=== PATIENT | female | born 1950 | race African-American/Black ===

== ENCOUNTER 2016-08-24 15:15 | Inpatient (IN) | payer MEDICARE, OTHER ==
--- NOTE | ~2016-08-24 | HP ---
Unit #: [id number] #: [id number] Patient: OVIDIO HINTON [id number] [place], [place] [address] [id number] I MR#: [id number] NAME: OVIDIO HINTON ROOM: 50084 Age: 66 Sex: F Admission Date: 08/24/2016 : 1950 Attending Physician: Heidy Gong M.D. Primary Care Physician: Primary Care Physician No HISTORY AND PHYSICAL CHIEF COMPLAINT Shortness of air, chest pain. HISTORY OF PRESENT ILLNESS The patient is a 66-year-old female with past medical history of CHF, COPD, chronic respiratory failure, hypertension, hyperlipidemia, paroxysmal atrial fibrillation, chronic kidney disease, Pickwickian syndrome, coronary artery disease, obstructive sleep apnea, breast cancer, diabetes, who presented to the emergency department for evaluation of the above. The patient states that she has had a one-week history of increasing shortness of breath and nonproductive cough. She has also had increased lower extremity swelling and intermittent chest pain. She describes the chest pain as "tightness," it is in the mid chest. There are no exacerbating or alleviating factors. She sleeps in a hospital bed in an upright position which is apparently not a new problem. She also has paroxysmal nocturnal dyspnea that has been worse over the past week. She also reports a 10-pound weight gain over the past week. She states that she has been taking her medications as prescribed. She is on Bumex 2 mg and takes that 3 to 4 times a day. In the emergency department, initial pulse and blood pressure was 86 and 146/58 respectively. Chest x-ray shows cardiomegaly with vascular congestion. EKG shows sinus rhythm with occasional PVCs at a rate of 93 beats per minute. BNP is 39. She was given 1 mg of Bumex as well as 125 mg of Solu-Medrol in the emergency department. She is being admitted to [facility] for evaluation and further treatment. PAST MEDICAL HISTORY 1. Admission to [facility] 03/05 through 03/10/2016 for congestive heart failure. 2. Congestive heart failure. Per the History and Physical from 03/05/2016, the patient had an echocardiogram in November 2015 that showed an ejection fraction of 55%. 3. Coronary artery disease, status post cardiac stent placement. The patient has seen Dr. Abdullahi in the past. 4. COPD. 5. Chronic respiratory failure on 4 liters of oxygen per trach mask, followed by Dr. Lozano. 6. Hypertension. 7. Hyperlipidemia. 8. Paroxysmal atrial fibrillation, not on chronic anticoagulation. The patient is on amiodarone. Unit #: [id number] #: [id number] Patient: OVIDIO HINTON 9. Chronic kidney disease. The patient has seen Dr. Marx in the past. 10. Pickwickian syndrome. 11. Obstructive sleep apnea. 12. History of breast cancer. 13. Diabetes. PAST SURGICAL HISTORY 1. Tracheostomy. 2. Cardiac stent placement. 3. Lumpectomy. ALLERGIES 1. Meperidine. 2. Latex. HOME MEDICATIONS 1. Potassium 80 mEq h.s. 2. Vitamin D 50,000 units weekly. 3. Guaifenesin 1200 mg b.i.d. p.r.n. 4. Tizanidine 8 mg h.s. 5. Bumex 2 mg t.i.d. to q.i.d. 6. Gabapentin 400 mg t.i.d. 7. [place] 10/325 q.i.d. 8. Amiodarone 100 mg daily. 9. Novolin R 45 units subcu t.i.d. 10. Novolin N 70 units subcu b.i.d. 11. Nexium 20 mg h.s. 12. Norvasc 5 mg daily. 13. Ipratropium q.4 h. p.r.n. SOCIAL HISTORY The patient lives with her daughter. She is a former smoker. There is no alcohol use. She walks with a cane. Her CODE STATUS is a FULL CODE. FAMILY HISTORY Notable for her mother having breast cancer, her father had stomach cancer. REVIEW OF SYSTEMS A complete review of systems is negative except as indicated in the HPI. PHYSICAL EXAMINATION VITAL SIGNS: Temperature 98.2, pulse 86, respirations 18, blood pressure 146/58, oxygen saturation 100% on room air. GENERAL: The patient is an female who is awake and alert in no acute distress. HEENT: Head is atraumatic. Mucous membranes are moist. NECK: Patient has a tracheostomy. LUNGS: Decreased breath sounds bilaterally. Breathing is mildly labored with conversation. HEART: Irregular. ABDOMEN: Obese, soft, nontender. Bowel sounds present in all four quadrants. EXTREMITIES: 2+ edema. NEUROLOGIC: Patient is awake and alert. She follows commands. PSYCHIATRIC: Mood and affect are normal. Patient is cooperative. SKIN OF EXAMINED AREAS: Warm and dry. DIAGNOSTIC STUDIES Unit #: [id number] #: [id number] Patient: OVIDIO HINTON LABORATORY: Complete blood count notable for white blood cell count of 10.6, hemoglobin 11, hematocrit 34.9. Troponin less than 0.05. Comprehensive metabolic panel notable for potassium of 3.4, bicarb 32, glucose 113, BUN 35, creatinine 1.5, alkaline phosphatase 97. BNP 39. IMAGING: Chest x-ray shows cardiomegaly with vascular congestion. CARDIOVASCULAR: EKG shows sinus rhythm with occasional PVCs at a rate of 93 beats per minute. ASSESSMENT The patient is a 66-year-old female with: 1. Congestive heart failure exacerbation. The patient's ejection fraction was 55% per echocardiogram in November 2015. She received 1 mg of Bumex in the emergency department. 2. Chest pain. 3. Chronic obstructive pulmonary disease. The patient sees Dr. Lozano. 4. Chronic respiratory failure on 4 liters of oxygen per trach mask. 5. Hypertension. 6. Hyperlipidemia. 7. Paroxysmal atrial fibrillation maintained on amiodarone, not on chronic anticoagulation. 8. Chronic kidney disease. The patient has seen Dr. Marx in the past. The patient's creatinine was 1.7 on 08/11/2016, it is 1.5 today. 9. Pickwickian syndrome. 10. Coronary artery disease, status post cardiac stent placement. 11. Obstructive sleep apnea. 12. History of breast cancer, status post lumpectomy. 13. Diabetes. The patient's hemoglobin A1c was 7.4 on 07/03/2016. 14. Morbid obesity with a BMI of 48 present on admission. PLAN 1. Admit to intermediate level. 2. 2-gram sodium, 1800 mL fluid restricted, heart-healthy consistent carb diet. 3. Bumex 2 mg IV q.8 h. 4. Strict I's and O's. 5. Daily weights. 6. 2D echo if not done within the past year. 7. Serial cardiac enzymes. 8. Check TSH and magnesium levels. 9. Consult Dr. Abdullahi regarding CHF exacerbation and chest pain. 10. Solu-Medrol 80 mg IV q.12 h. 11. Check ABG. 12. DuoNeb. 13. Replace potassium. 14. Check magnesium level. 15. Low-dose sliding scale insulin with Accu-Cheks. 16. Lovenox for DVT prophylaxis. 17. Check urinalysis. 18. Additional workup and consultants based on above. 19. Regarding CODE STATUS the patient is a FULL CODE. Unit #: [id number] #: [id number] Patient: OVIDIO HINTON Dictated by Cassie Bautista/dannie TD: 08/24/2016 20:07 JOB #: [id number] HISTORY AND PHYSICAL Page 1 of 1 X Heidy Gong MD HISTORY AND PHYSICAL
--- NOTE | ~2016-08-24 | EKG ---
PATIENT: OVIDIO HINTON UNIT #: [id number] Ventricular Rate: 93 BPM Atrial Rate: 93 BPM P-R Interval: 144 ms QRS Duration: 98 ms Q-T Interval: 394 ms QTC Calculation(Bezet): 489 ms P [employer]: 52 degrees Calculated R [employer]: -38 degrees Calculated T [employer]: 43 degrees Diagnosis Line: Sinus rhythm with occasional Premature ventricular Diagnosis Line: complexes Diagnosis Line: Left axis deviation Diagnosis Line: Abnormal ECG Diagnosis Line: When compared with ECG of 10-JUN-2016 16:27, Diagnosis Line: Premature ventricular complexes are now Present Diagnosis Line: Incomplete right bundle branch block is no longer Diagnosis Line: Present Diagnosis Line: Borderline criteria for Lateral infarct are no Diagnosis Line: longer Present Diagnosis Line: Confirmed by TANO TORRES MD ([id number]) on 08/24/2016 Diagnosis Line: 11:06:33 PM INTERPRETING MD: BRIAN HOSKINS
--- NOTE | ~2016-08-24 | CO ---
Unit #: [id number] #: [id number] Patient: OVIDIO HINTON [id number] [facility]. [place], [place] [address] [id number] I MR#: [id number] NAME: OVIDIO HINTON ROOM: 308 Age: 66 Sex: F Admission Date: 08/24/2016 : 1950 Attending Physician: Davi Lai M.D. Primary Care Physician: No Primary Care Physician Consultation Date: 08/25/2016 CONSULTATION REPORT REASON FOR CONSULTATION Acute on chronic diastolic CHF and dyspnea. HISTORY OF PRESENT ILLNESS The patient is a 66-year-old -Lao female who is known to Dr. Abdullahi. She has had multiple hospital admissions to [facility] for dyspnea and CHF. Records indicate in November 2015 her ejection fraction was 55%. The patient reports that she has had a cardiac catheterization at [facility] in 2014 and received three stents; however, the details are unknown. Additional past medical history includes fluid overload, pulmonary edema, paroxysmal atrial fibrillation, pickwickian syndrome with tracheostomy, chronic kidney disease, obstructive sleep apnea, osteoarthritis, breast cancer and reformed tobaccoism. The patient reports that she has been having increasing shortness of breath with exertion for about the past week. She states that she has been taking her Bumex as prescribed. She states that she has been following fluid restriction and trying to follow a low sodium diet. The patient reports that she is compliant with her followup with Dr. Abdullahi. For the past week, the patient reports again the shortness of breath with exertion, nonproductive cough but denies chest pain. She notes that her lower extremities may seem a little bit more swollen than the usual too. The patient is followed by [facility] and the [facility]. In the emergency room, the patient's peak troponin was found to be 0.09. EKG showed sinus rhythm with PVCs and she was treated with IV Bumex. Cardiology has been consulted for further management. PAST MEDICAL HISTORY 1. EF of 55% per records from November 2015 2. Cardiac catheterization 2015 at [facility]. Details unknown. 3. Multiple cardiac admissions for chronic diastolic CHF and atrial fibrillation. 4. Paroxysmal atrial fibrillation. 5. Hypertension. 6. Dyslipidemia. 7. Pickwickian syndrome with tracheostomy. 8. Diabetes type 2. 9. Morbid obesity with BMI greater than 30. 10. Degenerative disc disease. 11. COPD. 12. Coronary artery disease with three stents, details unknown. 13. Osteoarthritis. Unit #: [id number] #: [id number] Patient: OVIDIO HINTON 14. MRSA of the sputum. 15. Breast cancer. 16. Obesity. PAST SURGICAL HISTORY 1. Breast cancer with lumpectomy in 2013. 2. Tracheostomy in 2013. 3. Cardiac catheterization, details unknown. 4. Left upper chest PowerPort. ALLERGIES Latex, meperidine. HOME MEDICATIONS 1. Potassium 80 mEq p.o. at bedtime. 2. Vitamin D 50,000 units p.o. weekly on . 3. Humibid LA 1200 mg p.o. b.i.d. p.r.n. 4. Tizanidine 8 mg p.o. at bedtime. 5. Bumex 2 mg p.o. three to four times daily. 6. Gabapentin 400 mg p.o. three times daily. 7. [place] 10/325 mg, one tab p.o. four times daily. 8. Amiodarone 100 mg p.o. daily. 9. Novolin R 45 units subcu three times daily. 10. Novolin N 70 units subcu b.i.d. 11. Nexium 20 mg p.o. at bedtime. 12. Norvasc 5 mg p.o. daily. 13. Ipratropium albuterol 3 mL inhalation every four hours p.r.n. shortness of breath. FAMILY HISTORY The patient endorses a family history of cancer. She denies any premature atherosclerotic heart disease. SOCIAL HISTORY The patient states that she smoked cigarettes for approximately 40 years but quit in 2016. She denies any alcohol or illicit drug abuse. She states that she is able to walk around the house but is unable to walk one to three blocks. She is unable to lie flat at night and has to sleep with her head up. She has had a tracheostomy since 2013. REVIEW OF SYSTEMS CONSTITUTIONAL: The patient denies fever, chills. Endorses fatigue. HEENT: This patient denies sore throat, ear pain or runny nose. CARDIOVASCULAR: The patient denies chest pain, irregular rhythm or palpitations. CHEST: The patient endorses shortness of breath and cough. Denies hemoptysis. GI: Denies nausea, vomiting, diarrhea, chronic constipation or hematochezia. ENDO: Denies increased thirst or urination. Endorses weight gain. : Denies any dysuria, frequency or hematuria. SKIN: Denies any unusual rashes or lesions. HEMATOLOGIC: Denies any increased bleeding or bruising. MUSCULOSKELETAL: Denies any hot, swollen joints. She denies any generalized muscle pain. NEUROLOGIC: She denies problems with speech or vision. No frequent severe headaches. No numbness, tingling or weakness in any extremity. Denies loss of bowel or bladder control. Unit #: [id number] #: [id number] Patient: OVIDIO HINTON PHYSICAL EXAMINATION GENERAL: The patient is awake, alert, in no acute distress. VITAL SIGNS: Temperature 98.2, heart rate 84, respirations 18, blood pressure 125/64. She is oxygenating 100%. She is on a trach mask. HEENT: Head is atraumatic, normocephalic. Pupils are equal, round and reactive. Extraocular movements are intact. No drainage from ears or nares. NECK: Supple. Tracheostomy is clean, dry and intact. There is a trach mask attached. No thyromegaly or lymphadenopathy is appreciated. CHEST: Lungs are diminished bilaterally with faint crackles in the bases. CARDIOVASCULAR: S1, S2. Regular rate and rhythm. The patient has a 2/6 systolic murmur. ABDOMEN: Soft, nontender, nondistended. Bowel sounds are positive in all four quadrants. SKIN: Appears to be warm, dry and intact without any unusual rashes or lesions. EXTREMITIES: No clubbing or cyanosis. The patient has 1 to 2+ bilateral lower extremity edema. NEUROLOGIC: The patient is alert and oriented x3. She is pleasant and conversant. No focal defects. DIAGNOSTIC STUDIES LABORATORY: Troponin 0.09, 0.07. White blood cells 9.9, hemoglobin 11.1, hematocrit 35.2, platelets 182, sodium 139, potassium 4.3, chloride 97, CO2 30, BUN 36, creatinine 2.1, glucose 242. IMAGING: Chest x-ray shows cardiomegaly and vascular congestion. CARDIOVASCULAR: EKG shows sinus rhythm with PVCs. ASSESSMENT 1. Acute on chronic diastolic congestive heart failure and left ventricular ejection fraction of 55% per echo in November 2015. 2. Acute on chronic hypoxic respiratory failure requiring 4 L nasal cannula and tracheostomy secondary to pickwickian syndrome. 3. Coronary artery disease with history of stents, details unknown. 4. Hypertension. 5. Hyperlipidemia. 6. Diabetes. 7. Acute on chronic kidney disease. 8. Paroxysmal atrial fibrillation with a CHADS-VASc score of 6-7. She is currently in sinus rhythm. 9. Morbid obesity with body mass index greater than 30. 10. History of breast cancer, status post lumpectomy. 11. Reformed tobaccoism. 12. Mild elevated troponin. I have discussed this case with Dr. Peña. He is agreeable to continue IV Bumex 2 mg every eight hours. Will continue patient's Norvasc and Cordarone. Will add strict I's and O's, check a TSH, add 2 g sodium diet. Will monitor patient's troponin. Will ask the nurses to do daily weights on the patient. Unit #: [id number] #: [id number] Patient: OVIDIO HINTON Dictated by... Vania Lai A.P.R.N. for Paul Peña M.D. AM/brianne TD: 08/25/2016 10:39 JOB #: [id number] CONSULTATION REPORT Page 1 of 1 X Vania Lai ESTIMATOR PROJECT MANAGER X CONSULTATION REPORT
--- NOTE | ~2016-08-24 | BMI ---
[facility] Nutrition Therapy DATE: 08/25/16 Patient: OVIDIO HINTON Physician: SAVANNAH Address: [address] [place] [address] Room/Bed: [address] [place] [address], Zip: [place] [address] Admit Date: 08/24/16 Date of : [birth year] Height: 5 10 Weight: 336 152.8 HIGH BMI NOTE: ANTHROPOMETRICS: HT: 70" WT: 152.8 KG BMI: 48.2 INTERVENTION: 1. 2 GM NA+/ HH/CC DIET RECOMMENDATIONS: 1. CONTINUE CURRENT DIET TO PROMOTE GRADUAL WEIGHT LOSS TOWARDS A HEALTHY BMI RANGE. Respectfully, LUCILLE DEL CID RD, LD [facility] cc: client file
--- NOTE | ~2016-08-24 | CR63 ---
[facility] A Service of [facility] & [facility] RADIOLOGY TEXT RESULTS PATIENT: OVIDIO HINTON LOCATION: [facility] 308- : [birth year] UNIT #: [id number] AGE: [address]: Davi Lai MD SEX: F ORDER DR: [id number] [facility] [address] [facility]. [place], [place] [address] [id number] I MR#: [id number] Acc #: [id number] NAME: OVIDIO HINTON : 1950 SEX: F STUDY DATE/TIME: 08/26/2016 21:12 UNIT: C3A U ROOM: [facility] STUDY DESCRIPTION: CR Chest 2 View Attending Physician: Davi Lai M.D. Ordering Physician: Davi Lai M.D. Primary Care Physician: Primary Care Physician No MEDICAL IMAGING REPORT This report is preliminary unless electronic signature is present EXAM AP and lateral chest, 08/26/2016 HISTORY Cough and congestion and shortness of air for 2 weeks. FINDINGS 2 views of the chest demonstrate mild cardiac enlargement. Borderline vascular congestion. No airspace infiltrates or effusions are identified. Exam sensitivity is limited on the lateral view due to motion and under penetration. Tracheostomy tube tip is 5 cm above the omar. Left subclavian port catheter tip is in the right atrium 2 cm beyond the junction of the SVC and right atrium. IMPRESSION 1. Mild cardiac enlargement and borderline to mild vascular congestion. 2. No infiltrates are identified. Dictated by... Dave Dennis M.D. THIS IS AN ELECTRONICALLY VERIFIED REPORT Dave Dennis M.D. at 08/26/2016 11:29 PM AKIRA/gunjan TD: 08/26/2016 23:14 JOB #: [id number] MEDICAL IMAGING REPORT Page 1 of 1 COPY
--- NOTE | ~2016-08-24 | NM69 ---
[facility] A Service of [facility] & [facility] RADIOLOGY TEXT RESULTS PATIENT: OVIDIO HINTON LOCATION: [facility] 308- : [birth year] UNIT #: [id number] AGE: [address]: Davi Lai MD SEX: F ORDER DR: [id number] [facility] [address] [facility]. [place], [place] [address] [id number] I MR#: [id number] Acc #: [id number] NAME: OVIDIO HINTON : 1950 SEX: F STUDY DATE/TIME: 08/26/2016 20:29 UNIT: A [facility] ROOM: [facility] STUDY DESCRIPTION: NM Pulm Vent and Perf Attending Physician: Davi Lai M.D. Ordering Physician: Davi Lai M.D. Primary Care Physician: No Primary Care Physician MEDICAL IMAGING REPORT This report is preliminary unless electronic signature is present EXAM V/Q lung scan. DATE OF EXAM 08/26/2016 HISTORY Shortness of air and chest congestion for 3 days. FINDINGS Ventilation scan was performed with 35 mCi technetium DTPA. Perfusion scan was performed with 6 mCi technetium MAA. Ventilation images are limited by patient body habitus and tracer concentration along the tracheostomy tube. On the perfusion scans, no focal perfusion defects are identified. IMPRESSION Low probability of pulmonary embolus. Dictated by... Dave Dennis M.D. THIS IS AN ELECTRONICALLY VERIFIED REPORT Dave Dennis M.D. at 08/26/2016 11:29 PM AKIRA/angeles TD: 08/26/2016 22:56 JOB #: [id number] MEDICAL IMAGING REPORT Page 1 of 1 COPY
--- NOTE | ~2016-08-24 | CR71 ---
[facility] A Service of [facility] & [facility] RADIOLOGY TEXT RESULTS PATIENT: OVIDIO HINTON LOCATION: [facility] 308- : [birth year] UNIT #: [id number] AGE: [address]: Davi Lai MD SEX: F ORDER DR: [id number] [facility] [address] [facility] [place], [place] [address] [id number] I MR#: [id number] Acc #: [id number] NAME: OVIDIO HINTON : 1950 SEX: F STUDY DATE/TIME: 08/27/2016 8:16 UNIT: [address] ROOM: [facility] STUDY DESCRIPTION: CR Chest Single View Attending Physician: Davi Lai M.D. Ordering Physician: Davi Lai M.D. Primary Care Physician: Primary Care Physician No MEDICAL IMAGING REPORT This report is preliminary unless electronic signature is present EXAM Portable chest INDICATIONS Congestive heart failure. The study is performed in conjunction with ventilation-perfusion scan. Comparison with yesterday. FINDINGS Slightly decreased inspiratory volume. No new infiltrates. Heart size stable. Stable tracheostomy tube and chest port. IMPRESSION Slightly decreased inspiratory volume otherwise no significant change. Dictated by... Demar Leigh M.D. THIS IS AN ELECTRONICALLY VERIFIED REPORT Demar Leigh M.D. at 08/27/2016 4:33 PM ДМИТРИЙ/lina TD: 08/27/2016 10:39 JOB #: [id number] MEDICAL IMAGING REPORT Page 1 of 1 COPY
--- NOTE | ~2016-08-24 | DS ---
Unit #: [id number] #: [id number] Patient: OVIDIO HINTON [id number] [place], [place] [address] [id number] I MR#: [id number] NAME: OVIDIO HINTON ROOM: 308 Age: 66 Sex: F Admission Date: 08/24/2016 : 1950 Discharge Date: 08/29/2016 Attending Physician: Davi Lai M.D. Primary Care Physician: Primary Care Physician No DISCHARGE SUMMARY DISCHARGE DIAGNOSES 1. Acute on chronic respiratory failure. 2. Acute on chronic diastolic heart failure. 3. Pickwickian syndrome. 4. Hypertension. 5. Chronic kidney disease, stage 3. 6. Diabetes. 7. Obstructive sleep apnea. HOSPITAL COURSE The patient is a 66-year-old female, who presents to [facility] Emergency Department with complaint of shortness of breath. The patient was felt to have an exacerbation of her chronic diastolic heart failure and was started on IV Bumex. The patient has done well on said therapy and has diuresed approximately 13 L over the past 72 hours. As a result, she is up and ambulating without difficulty. At this time, the Bumex drip has been stopped and the patient is being discharged home. Follow up with primary care provider. DISCHARGE MEDICATIONS DuoNebs as needed shortness of breath, amiodarone 100 mg daily, Neurontin 400 mg p.o. t.i.d., Norvasc 5 mg daily, Bumex 2 mg p.o. t.i.d. and 2 mg p.o. q.i.d. for 2 pounds weight gain in 24 hours or 5 pounds over 72 hours. Humibid 1200 mg p.o. b.i.d. as needed, Novolin R 45 units subcu t.i.d., Novolin N 70 units subcu b.i.d., [place] 10/325 one p.o. q.i.d., Nexium 20 mg at bedtime, Klor-Con 8 mEq p.o. at bedtime and in the morning. Tizanidine 8 mg p.o. q.h.s., vitamin D 50,000 units weekly. FOLLOWUP The patient should follow up with her primary care provider, [facility], as soon as possible. Additionally, the patient should follow up with Dr. Gordon in 1 month. Dictated by... Davi Lai M.D. JOHNNIE/leti Unit #: [id number] #: [id number] Patient: OVIDIO HINTON TD: 08/30/2016 00:53 JOB #: [id number] DISCHARGE SUMMARY Page 1 of 1 X Davi Lai MD X DISCHARGE SUMMARY
--- NOTE | ~2016-08-24 | CR72 ---
[facility] A Service of [facility] & [facility] RADIOLOGY TEXT RESULTS PATIENT: OVIDIO HINTON LOCATION: [facility] 308-01 : [birth year] UNIT #: [id number] AGE: [address]: Heidy Gong MD SEX: F ORDER DR: [id number] [facility] [address] [facility]. [place], [place] [address] [id number] I MR#: [id number] Acc #: [id number] NAME: OVIDIO HINTON : 1950 SEX: F STUDY DATE/TIME: 08/24/2016 15:21 UNIT: CEDOF ROOM: 60897 STUDY DESCRIPTION: CR Chest Single View Portable Attending Physician: Heidy Gong M.D. Ordering Physician: Romero Ugarte M.D. Primary Care Physician: Primary Care Physician No MEDICAL IMAGING REPORT This report is preliminary unless electronic signature is present EXAM Portable chest, 08/24/2016 HISTORY Chest pain and shortness of air. Cough and congestion for 1 week. FINDINGS Moderate cardiac enlargement and vascular congestion, with increased vascular congestion compared to 06/10/2016. No airspace infiltrates or effusions. Left subclavian port catheter tip is in the right atrium 2 cm beyond the junction SVC and right atrium. Tracheostomy tube tip is in satisfactory position. Surgical clips in the right axilla. IMPRESSION 1. No pulmonary infiltrates. 2. Moderate cardiac enlargement and vascular congestion. Dictated by... Dave Dennis M.D. THIS IS AN ELECTRONICALLY VERIFIED REPORT Dave Dennis M.D. at 08/24/2016 11:39 PM DFSid/gunjan TD: 08/24/2016 21:59 JOB #: [id number] MEDICAL IMAGING REPORT Page 1 of 1 COPY
--- NOTE | ~2016-08-24 | A ---
[facility] Nutrition Therapy DATE: 08/27/16 Patient: OVIDIO HINTON Physician: SAVANNAH Address: [address] [place] [address] Room/Bed: [address] [place] [address], Zip: [place] [address] Admit Date: 08/24/16 Date of : [birth year] Height: 5 10 Weight: 335 152.4 NUTRITIONAL ASSESSMENT: REASON: Verbal MD consult RE: CHF diet education 66 yo female admitted for shortness of air, chest pain PMH: CHF, COPD, HTN, HLD, CAD, DM, CKD, DILIP, chronic respiratory failure, Pickwickian syndrome, h/o breast cancer Anthropometrics: Ht: 5'10" Wt: 152.3 kg (335#) BMI: 48.2 Assessment: RD manufacturing intern provided written and verbal CHF diet education. Encouraged limiting sodium intake d/t CHF. Pt reported eating food daughter prepares, RD manufacturing intern encouraged looking over provided handouts with family. RD manufacturing intern encouraged consistent healthy meals throughout the day 2' PMH of diabetes. Pt stated diet changes were hard, expect mild compliance with diet when d/c'd. Pt had no diet questions at this time. Recommendations: 1. Encourage compliance with 2 gm sodium diet + fluid restriction. 2. Reconsult RD if further diet education is needed/requested. RD will f/u per protocol. Respectfully, Jennifer De Souza, R D Manager Nuno Renteria MS, RD, LD Food and Nutritional Services [facility] cc: client file
[~2016-08-24 15:15] MED LIST: ACETAMINOPHEN325 MG PO; ALDACTONE25 MG PO; AMIODARONE HCL400 MG PO; BUMETANIDE0.25 MG/ML INJ; BUMEX2 MG PO; CLOPIDOGREL75 MG PO; DOCUSATE SODIU100 MG PO; GABAPENTIN400 M2 PO; HUMALOG100 U/M2 SUBQ; HUMALOG100 U/ML SUBQ; HUMIBID-LA600 MG PO; HYDRALAZINE HCL50 MG PO; IPRATROPIUM0.2 MG/ML NEB; KLOR-CON 88 ME1 PO; LANTUS100 UNITS/ SUBQ; LIPITOR80 MG PO; NEXIUM 24HR20 MG PO; NORCO 10-325 TA1 TAB PO; NORVASC10 MG PO; OXYCODON HCL-AP1 TA2 PO; POTASSIUM CHLOR8 ME1 PO; TIZANIDINE HCL4 M1 PO; Vitamin D PO
[2016-08-24 16:23] LABS: BASOPHIL# 0.1 X10e3 (0-0.3); BASOPHIL% 0.7 % (0-2.5); EOSINOPHIL# 0.3 X10e3 (0-0.7); EOSINOPHIL% 2.7 % (0.0-7.0); HEMATOCRIT 34.9 % (35.0-45.0); LYMPHOCYTE# 1.5 X10e3 (1.0-3.5); MEAN CELL VOLUME 84.1 FL (83-96); MEAN CORPUSCULAR HEMOGLOBIN 26.6 PG (28-34); MEAN CORPUSCULAR HGB CONC 31.6 g/dL (30-36); MEAN PLATELET VOLUME 10.3 FL (6.5-11.5); MONOCYTE# 0.9 X10e3 (0-1.0); MONOCYTE% 8.7 % (3.0-12.0); NEUTROPHIL# 7.8 X10e3 (1.5-7.1); NEUTROPHIL% 73.9 % (40-75); PLATELET COUNT 179 X10e3 (140-420); RED BLOOD COUNT 4.15 X10e (3.90-5.30); RED CELL DISTRIBUTION WIDTH 17.8 % (11.0-15.5); WHITE BLOOD COUNT 10.6 X10e3 (4.0-10.5)
[2016-08-24 16:29] LABS: DIFF IND NO
[2016-08-24 16:30] LABS: POC - CKMB 4.5 ng/mL (0.0-7.9); POC - TROPONIN <0.05 ng/mL (<=0.05)
[2016-08-24 16:47] LABS: BILIRUBIN, DIRECT 0.1 mg/dL (0.0-0.2); BILIRUBIN,INDIRECT 0.5 mg/dL (0.0-0.9); BILIRUBIN,TOTAL 0.6 mg/dL (0.2-2.0); BUN/CREATININE RATIO 23.33; CALCIUM SERUM 9.4 mg/dL (8.4-10.2); CREATININE SERUM 1.5 mg/dL (0.6-1.4); GLOM FILT RATE Estimated 41.4 mL/min (>60); POTASSIUM 3.4 mmol/L (3.5-5.1); PROTEIN TOTAL SERUM 7.2 g/dL (6.0-8.3)
[2016-08-24] MEDS ORDERED: AMIODARONE HCL100 MG PO (18:21)
[2016-08-24] MEDS ORDERED: NOVOLIN R100 UNITS/ SUBQ (18:23)
[2016-08-24] MEDS ORDERED: NOVOLIN N100 UNIT/1 SUBQ (18:23)
[2016-08-24] MEDS ORDERED: NORVASC PO (18:24)
[2016-08-24] MEDS ORDERED: NEXIUM20 MG PO (18:24)
[2016-08-24] MEDS ORDERED: IPRATR-ALBUTEROL3 ML INH (18:25)
[2016-08-24 20:25] LABS: ARTERIAL BLD GAS O2 SATURATION 93.3 % (90.0-100.0); ARTERIAL BLOOD GAS CARBOXY HB 0.7 %sat (0.0-9.0); ARTERIAL BLOOD GAS HCO3 32.5 mmol/L; ARTERIAL BLOOD GAS MET HB 0.7 %sat (0.0-2.0); ARTERIAL BLOOD GAS PCO2 49.5 mmHg (35.0-45.0); ARTERIAL BLOOD GAS pH 7.426 (7.350-7.450)
[2016-08-24 20:26] LABS: ARTERIAL BLOOD GAS ALLEN TEST NORMAL; ARTERIAL BLOOD GAS ART SITE RIGHT RADIAL; ARTERIAL BLOOD GAS DELIVERY T-COLLAR; ARTERIAL BLOOD GAS PO2 72.2 mmHg (80.0-100); ARTERIAL DRAW? YES
[2016-08-25 03:01] LABS: %MB 1.9 % (0.0-4.0); MB 7.8 ng/ml
[2016-08-25 04:58] LABS: BASOPHIL% 0.2 % (0-2.5); EOSINOPHIL% 0.1 % (0.0-7.0); HEMATOCRIT 35.2 % (35.0-45.0); HEMOGLOBIN 11.1 gm/dL (12.0-16.0); LYMPHOCYTE# 0.6 X10e3 (1.0-3.5); LYMPHOCYTE% 6.3 % (17.0-45.0); MEAN CELL VOLUME 85.2 FL (83-96); MEAN CORPUSCULAR HEMOGLOBIN 26.9 PG (28-34); MEAN CORPUSCULAR HGB CONC 31.6 g/dL (30-36); MEAN PLATELET VOLUME 10.8 FL (6.5-11.5); MONOCYTE# 0.2 X10e3 (0-1.0); MONOCYTE% 2.4 % (3.0-12.0); PLATELET COUNT 182 X10e3 (140-420); RED BLOOD COUNT 4.13 X10e (3.90-5.30); WHITE BLOOD COUNT 9.9 X10e3 (4.0-10.5)
[2016-08-25 04:59] LABS: DIFF IND NO
[2016-08-25 05:47] LABS: ALBUMIN SERUM 3.6 g/dL (3.5-5.0); BILIRUBIN,TOTAL 0.7 mg/dL (0.2-2.0); BUN/CREATININE RATIO 17.14; CREATININE SERUM 2.1 mg/dL (0.6-1.4); GLOM FILT RATE Estimated 27.5 mL/min (>60); MAGNESIUM 1.8 mg/dL (1.6-3.0); POTASSIUM 4.3 mmol/L (3.5-5.1); PROTEIN TOTAL SERUM 6.8 g/dL (6.0-8.3)
[2016-08-25 06:41] LABS: %MB 1.8 % (0.0-4.0); MB 6.6 ng/ml
[2016-08-25 15:31] LABS: URINE SOURCE CLEAN CATCH
[2016-08-25 15:42] LABS: URINE APPEARANCE CLEAR; URINE BILIRUBIN NEG (NEG); URINE BLOOD NEG (NEG); URINE COLOR YELLOW; URINE GLUCOSE 500 MG/DL (NEG); URINE KETONE NEG (NEG); URINE LEUKOCYTE ESTERASE NEG (NEG); URINE NITRATE NEG (NEG); URINE PROTEIN NEG (NEG); URINE SPECIFIC GRAVITY 1.011 (1.003-1.035); URINE UROBILINOGEN 0.2 MG/DL (NEG)
[2016-08-25 15:55] LABS: CULTURE INDICATED? NO
[2016-08-26 06:23] LABS: BUN/CREATININE RATIO 23.88; CALCIUM SERUM 8.6 mg/dL (8.4-10.2); CREATININE SERUM 1.8 mg/dL (0.6-1.4); GLOM FILT RATE Estimated 33.2 mL/min (>60); POTASSIUM 3.4 mmol/L (3.5-5.1)
[2016-08-27 05:43] LABS: HEMOGLOBIN 11.3 gm/dL (12.0-16.0); MEAN CELL VOLUME 82.7 FL (83-96); MEAN CORPUSCULAR HEMOGLOBIN 26.7 PG (28-34); MEAN CORPUSCULAR HGB CONC 32.2 g/dL (30-36); MEAN PLATELET VOLUME 9.9 FL (6.5-11.5); RED BLOOD COUNT 4.23 X10e (3.90-5.30); RED CELL DISTRIBUTION WIDTH 17.8 % (11.0-15.5); WHITE BLOOD COUNT 14.2 X10e3 (4.0-10.5)
[2016-08-27 06:45] LABS: BUN/CREATININE RATIO 26.87; CREATININE SERUM 1.6 mg/dL (0.6-1.4); GLOM FILT RATE Estimated 38.3 mL/min (>60); MAGNESIUM 2.1 mg/dL (1.6-3.0); POTASSIUM 3.1 mmol/L (3.5-5.1)
[2016-08-28 05:38] LABS: HEMATOCRIT 35.4 % (35.0-45.0); HEMOGLOBIN 11.5 gm/dL (12.0-16.0); MEAN CELL VOLUME 83.1 FL (83-96); MEAN CORPUSCULAR HEMOGLOBIN 27.1 PG (28-34); MEAN CORPUSCULAR HGB CONC 32.6 g/dL (30-36); RED BLOOD COUNT 4.26 X10e (3.90-5.30); RED CELL DISTRIBUTION WIDTH 17.7 % (11.0-15.5); WHITE BLOOD COUNT 11.6 X10e3 (4.0-10.5)
[2016-08-28 06:14] LABS: BUN/CREATININE RATIO 27.14; CALCIUM SERUM 8.5 mg/dL (8.4-10.2); CREATININE SERUM 1.4 mg/dL (0.6-1.4); GLOM FILT RATE Estimated 44.9 mL/min (>60)
[2016-08-28 06:18] LABS: POTASSIUM 2.8 mmol/L (3.5-5.1)
[2016-08-28 12:56] LABS: BUN/CREATININE RATIO 22.5; CALCIUM SERUM 8.8 mg/dL (8.4-10.2); CREATININE SERUM 1.6 mg/dL (0.6-1.4); GLOM FILT RATE Estimated 38.3 mL/min (>60); POTASSIUM 3.7 mmol/L (3.5-5.1)
[2016-08-29 06:36] LABS: HEMATOCRIT 36.8 % (35.0-45.0); HEMOGLOBIN 11.5 gm/dL (12.0-16.0); MEAN CELL VOLUME 84.4 FL (83-96); MEAN CORPUSCULAR HEMOGLOBIN 26.3 PG (28-34); MEAN CORPUSCULAR HGB CONC 31.1 g/dL (30-36); MEAN PLATELET VOLUME 10.8 FL (6.5-11.5); RED BLOOD COUNT 4.37 X10e (3.90-5.30); RED CELL DISTRIBUTION WIDTH 17.9 % (11.0-15.5); WHITE BLOOD COUNT 13.1 X10e3 (4.0-10.5)
[2016-08-29 07:07] LABS: BUN/CREATININE RATIO 21.76; CALCIUM SERUM 8.9 mg/dL (8.4-10.2); CREATININE SERUM 1.7 mg/dL (0.6-1.4); GLOM FILT RATE Estimated 35.6 mL/min (>60); MAGNESIUM 2.2 mg/dL (1.6-3.0); POTASSIUM 3.7 mmol/L (3.5-5.1)
[2017-02-15] MEDS ORDERED: METOLAZONE2.5 MG PO (09:51)
[2017-02-15] MEDS ORDERED: WELLBUTRIN XL150 M1 PO (09:52)
[2017-02-15] MEDS ORDERED: PANTOPRAZOLE SO20 MG PO (09:52)
[2017-02-15] MEDS ORDERED: PATIENT'S PHARMACY (09:52)
[2017-02-17] MEDS ORDERED: LEVAQUIN PO (12:23)
[2017-02-17] MEDS ORDERED: COLACE PO (12:24)
[2017-02-17] MEDS ORDERED: BROVANA15 MCG/2 M INH (12:25)
[2017-02-17] MEDS ORDERED: BUDESONIDE0.5 MG/2 M INH (12:27)
== END 2016-08-29 20:44 | disposition home health service (06) | DRG 291 ==
LOC: CED 15:15 → CEDOF 19:25 → C3A PCU 22:14
PROVIDERS: Emergency Medicine; Internal Medicine; Physician Assistant Medical
DX: I13.0 Hypertensive heart and chronic kidney disease with heart failure and stage 1 through stage 4 chronic kidney disease, or unspecified chronic kidney disease (principal); I50.33 Acute on chronic diastolic (congestive) heart failure; J96.21 Acute and chronic respiratory failure with hypoxia; N18.4 Chronic kidney disease, stage 4 (severe); E66.2 Morbid (severe) obesity with alveolar hypoventilation; Z68.42 Body mass index [BMI] 45.0-49.9, adult; E11.22 Type 2 diabetes mellitus with diabetic chronic kidney disease; Z79.4 Long term (current) use of insulin; I25.10 Atherosclerotic heart disease of native coronary artery without angina pectoris; Z95.5 Presence of coronary angioplasty implant and graft; J44.9 Chronic obstructive pulmonary disease, unspecified; Z99.81 Dependence on supplemental oxygen; E78.5 Hyperlipidemia, unspecified; I48.0 Paroxysmal atrial fibrillation; G47.33 Obstructive sleep apnea (adult) (pediatric); Z85.3 Personal history of malignant neoplasm of breast; Z91.040 Latex allergy status; Z93.0 Tracheostomy status; R07.9 Chest pain, unspecified; M19.90 Unspecified osteoarthritis, unspecified site; Z87.891 Personal history of nicotine dependence; Z86.14 Personal history of Methicillin resistant Staphylococcus aureus infection
CPT/HCPCS: 36415; 36600; 71010; 71020; 78582; 80048; 80053; 80076; 81003; 82550; 82553; 82803; 82947; 83036; 83735; 83880; 84132; 84443; 84484; 85025; 85027; 87040; 93005; 94640; 94667; 94668; 94760; 96374; 96375; 99285; A9540; A9567; J1642; J1650; J1815; J2930

== ENCOUNTER 2016-12-24 22:33 | Inpatient (IN) | payer MEDICARE, OTHER ==
[~2016-12-24] VITALS: Ht 177.8 cm; Wt 158.8 kg
--- NOTE | ~2016-12-24 | BMI ---
[facility] Nutrition Therapy DATE: 12/25/16 Patient: OVIDIO HINTON Physician: ANNELISE Address: [address] [place] [address] Room/Bed: [address] [place] [address], Zip: [place] [address] Admit Date: 12/25/16 Date of : [birth year] Height: 5 10 Weight: 350 158.75 HIGH BMI NOTE: DX: 66 y/o female admitted for chest pain ANTHROPOMETRICS: ht: 5'10" wt: 349# (158 kg) BMI 50 DIET: Healthy Heart INTERVENTION: 1. Healthy Heart diet RECOMMENDATIONS: 1. Continue current healthy heart diet in order to promote gradual weight loss towards a healthy BMI (19.0-25.0). RD will f/u per protocol. Respectfully, KAMRON LOMAS, Surgical Elastic Knitter Hand Frame Wanda Munoz, CLAUDIA, LD Food and Nutritional Services [facility] cc: client file
--- NOTE | ~2016-12-24 | CR72 ---
[facility] A Service of [facility] RADIOLOGY TEXT RESULTS PATIENT: OVIDIO HINTON [facility] [birth year] UNIT #: [id number] AGE: [address]: Soledad Luna MD SEX: F ORDER DR: [id number] [facility] [address] [place], [place] [address] [id number] E MR#: [id number] Acc #: [id number] NAME: OVIDIO HINTON : 1950 SEX: F STUDY DATE/TIME: 12/24/2016 23:48 UNIT: [facility] ROOM: STUDY DESCRIPTION: CR Chest Single View Portable Attending Physician: Rambo Cortez M.D. Ordering Physician: Ed Dirk Kim M.D. Primary Care Physician: Yo Reaves M.D. MEDICAL IMAGING REPORT This report is preliminary unless electronic signature is present EXAM Portable chest, 12/24 at 23:48 INDICATIONS Shortness of air, chest pain for 1 day. History of breast cancer and COPD. FINDINGS AP portable chest compared with 08/27/2016. Cardiomegaly is stable. Tracheostomy tube and left-sided Port-A-Cath are unchanged. There is some vascular congestion. Lungs are clear. No pneumothorax. IMPRESSION Stable cardiomegaly. There is some vascular congestion, but the lungs are clear. Dictated by... Krishan Renee Jr., M.D. THIS IS AN ELECTRONICALLY VERIFIED REPORT Krishan Renee Jr., M.D. at 12/25/2016 6:53 AM MANSI/tierra TD: 12/25/2016 00:47 JOB #: [id number] MEDICAL IMAGING REPORT Page 1 of 1 COPY
--- NOTE | ~2016-12-24 | HP ---
Unit #: [id number] #: [id number] Patient: OVIDIO HINTON [id number] [facility]. [place], [place] [address] [id number] I MR#: [id number] NAME: OVIDIO HINTON ROOM: 79664 Age: 66 Sex: F Admission Date: 12/25/2016 : 1950 Attending Physician: Soledad Luna M.D. Primary Care Physician: Yo Reaves M.D. HISTORY AND PHYSICAL CHIEF COMPLAINT Atypical chest pain, COPD exacerbation. HISTORY This pleasant 66-year-old female with CAD and diastolic dysfunction, PAF, hypertension, COPD, and diabetes, is admitted for chest pain and shortness of breath. The patient states that she was previously maintained on Nexium which was switched to Pepcid over the past month. While eating dinner last evening, she developed chest pressure into her neck which did not respond to nitroglycerin or to ice water. She called EMS. By the time EMS arrived, her discomfort had already improved. She was brought to this emergency department late last evening with stable vital signs except for being tachycardic to 123. She does have COPD and does have a trach for obstructive sleep apnea. She does make mention that she has been more short of breath with chest congestion and a cough. In the ER, she was given aspirin along with Solu-Medrol. Currently is feeling improved. In fact, would like to go home. Initial cardiac enzymes are negative. EKG does not show active ischemia. PAST MEDICAL HISTORY 1. Diastolic congestive heart failure. Previous echo 11/2015 reveals an ejection fraction of 55%. Patient was last admitted to this facility 08/14 for diastolic congestive heart failure as well. 2. CAD, status post PCI and stent placement, followed by Dr. Abdullahi. 3. COPD and obstructive sleep apnea with trach. Patient is maintained on 4 to 5 L of oxygen. 4. Essential hypertension. 5. Hyperlipidemia. 6. Paroxysmal atrial fibrillation, on amiodarone. 7. Chronic kidney disease. 8. History of breast cancer, status post lumpectomy. 9. AODM. ALLERGIES Demerol and latex. HOME MEDICATIONS From the best I can determine include: 1. Duo-Nebs and saline nebs. 2. Amiodarone 100 mg daily. 3. Neurontin 400 mg t.i.d. 4. Norvasc 5 mg daily. Unit #: [id number] #: [id number] Patient: OVIDIO HINTON 5. Bumex 2 mg t.i.d. and p.r.n. 6. Novolin R 45 units t.i.d. with meals plus sliding scale. 7. Novolin N 70 units b.i.d. 8. [place] 10 mg. 9. Pepcid. 10. Potassium. 11. Zanaflex 8 mg q. h.s. FAMILY HISTORY Breast cancer, stomach cancer. SOCIAL HISTORY The patient lives with her daughter. She stopped smoking ten years ago, does not drink alcohol. REVIEW OF SYSTEMS Notable for shortness of breath, chest pain, CAD, hypertension, hyperlipidemia, AODM, PAF, chronic kidney disease, above mentioned surgeries. All other systems were reviewed and are otherwise negative. PHYSICAL EXAMINATION GENERAL APPEARANCE: Pleasant, morbid obese 66-year-old female who currently is in no acute distress. VITAL SIGNS: Temperature 98.1, pulse 123, respirations 18, blood pressure 117/65. O2 saturation 96% on trach mask. HEENT: Eyes PERRLA. Extraocular muscles are intact. Pharynx is benign. NECK: Supple without adenopathy or thyromegaly. Trach is in place. CHEST: Mild expiratory wheeze. CARDIAC: Somewhat tachy S1 and S2 without definite murmur. There is a port in the left chest. ABDOMEN: Bowel sounds are present. No hepatosplenomegaly, tenderness or masses. Well-healed midline scar noted below the umbilicus. EXTREMITIES: Notable for bilateral pedal edema, about 2 to 3+. NEUROLOGIC EXAM: The patient is awake, alert, oriented. Cranial nerves are intact. Equal strength throughout. DIAGNOSTIC STUDIES LABORATORY: Admission labs - hematocrit 37.6, normal white count and platelet count. SMA-12 - glucose 220, BUN 45, creatinine 2.7, up from a BUN of 47, creatinine 2.1 in October. Potassium is 3.1, chloride is 95, CO2 33, alkaline phos. 98. Normal BMP. Negative cardiac markers. IMAGING: Chest x-ray - clear with perhaps some mild vascular congestion. CARDIOVASCULAR: EKG shows narrow complex tachycardia, rate 126. I do not definitely see P waves, however. Rhythm is regular. ASSESSMENT 1. Chest pain which is atypical although patient does have a history of CAD status post PCI and stent. 2. COPD with mild exacerbation. 3. AODM. 4. Obstructive sleep apnea with trach. 5. Chronic kidney disease. 6. Paroxysmal atrial fibrillation: Patient currently is in an atrial tachycardic rhythm. I do not definitely see P waves. Unit #: [id number] #: [id number] Patient: OVIDIO HINTON PLANS 1. Serial cardiac enzymes and ask cardiology to see. 2. Doxycycline, Duo-Nebs, mucolytics, short course of steroids if not improving. Patient is followed by Dr. Lozano. 3. DVT prophylaxis. 4. Will replace potassium. Dictated by Soledad Luna M.D. AML/df TD: 12/25/2016 06:09 JOB #: [id number] HISTORY AND PHYSICAL Page 1 of 1 X Soledad Luna MD X HISTORY AND PHYSICAL
--- NOTE | ~2016-12-24 | CO ---
Unit #: [id number] #: [id number] Patient: OVIDIO HINTON [id number] [place], [place] [address] [id number] I MR#: [id number] NAME: OVIDIO HINTON ROOM: 573 Age: 66 Sex: F Admission Date: 12/25/2016 : 1950 Attending Physician: Aiden Fernandez M.D. Primary Care Physician: Yo Reaves M.D. Consultation Date: 12/25/2016 CONSULTATION REPORT REASON FOR CONSULTATION Chest pain. HISTORY OF PRESENT ILLNESS This is a 66-year-old -[place] female, known to Dr. Abdullahi, with a prior history of coronary artery disease, status post cardiac catheterization at an outside hospital in 2014 with PCI and stent placement; chronic diastolic congestive heart failure, an EF of 55% per echo in 11/2015; Pickwickian syndrome with tracheostomy since 2013; GERD; COPD, O2 dependent; chronic kidney disease; hypertension; hyperlipidemia; diabetes mellitus; paroxysmal atrial fibrillation and reformed tobaccoism. She presented to the ER with reported chest pressure, not relieved with nitroglycerin x2. She states she was eating dinner and developed pressure in her bilateral upper chest up into her neck. Denies pain radiating into her arms or back or jaw. She took 2 nitroglycerin and had no relief, so she called EMS. She states this has been occurring intermittently for the last little while since her Nexium was stopped. She took a Prilosec prior to arrival in the ER. Her chest pain did resolve prior to the arrival in the ER. She denies chest pain, pressure, or tightness now. She did have some nausea and lightheadedness with the episode. 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 She also reports increased bilateral lower extremity, but denies PND or orthopnea. Her troponin was elevated at 0.09. Her EKG showed a sinus rhythm with nonspecific T-wave abnormalities. PAST MEDICAL HISTORY 1. Coronary artery disease, status post cardiac catheterization at an outside hospital in 2014 with PCI and stents (details unavailable at this time). 2. Chronic diastolic congestive heart failure with EF of 55% per echo in 11/2015. 3. Pickwickian syndrome with trach since 2013. 4. COPD, O2 dependent. 5. GERD. 6. Chronic kidney disease. 7. Hypertension. 8. Hyperlipidemia. 9. Diabetes mellitus, type 2. 10. Paroxysmal atrial fibrillation. 11. Reformed tobaccoism. Unit #: [id number] #: [id number] Patient: OVIDIO HINTON SOCIAL HISTORY She lives with her daughter. She is not currently active and uses a cane to ambulate. She is a reformed smoker, who quit in 2016 after smoking for 40 years. She denies alcohol or illicit drug use. [facility] CH[facility] program follows her at home. FAMILY HISTORY She denies a family history of premature coronary artery disease. PAST SURGICAL HISTORY 1. Breast cancer with lumpectomy in 2013. 2. Tracheostomy in 2013. 3. Cardiac catheterization in 2014. 4. Left upper chest PowerPort. ALLERGIES Demerol and latex. HOME MEDICATIONS Amiodarone 100 mg p.o. daily; Neurontin 400 mg t.i.d.; Norvasc 5 mg p.o. daily; Bumex 2 mg t.i.d. and p.r.n.; Novolin R 45 units t.i.d. with meals plus sliding scale; Novolin N 70 units b.i.d.; [place] 10 mg as needed for pain; Pepcid; potassium; Zanaflex 8 mg p.o. every hour of sleep. REVIEW OF SYSTEMS Otherwise negative except for what was stated in the HPI. PHYSICAL EXAMINATION VITAL SIGNS: Temperature 98.1, heart rate 118, blood pressure 129/71, O2 saturation 97% on 5 L, trach collar. BMI 50. GENERAL: Alert and oriented x3, a 66-year-old female, resting in bed in no acute distress. HEENT: Head is atraumatic and normocephalic. Pupils are equal and round. Mucous membranes are moist. NECK: Supple. Tracheostomy. Negative for JVD. LUNGS: Clear, decreased in bases. Nonlabored respirations. CARDIOVASCULAR: S1 and S2. Regular rate and rhythm. ABDOMEN: Soft, nontender, nondistended. EXTREMITIES: Pulses are palpable. 1+ pedal edema. NEUROLOGIC: Alert and oriented x3. Follows all commands without difficulty and moves all extremities equally. DIAGNOSTIC STUDIES LABORATORY RESULTS: Sodium 138, potassium 3.8, chloride 96, BUN 46, creatinine 2.4. AST 30, ALT 27, alkaline phosphatase 98. Hemoglobin 12.1, hematocrit 37.6, white blood cell count 8.7, platelets 188. BNP 72. Djzxn-lm-lyqm troponin less than 0.05 and repeat troponin 0.09. TSH in 10/2016 was 1.18. IMAGING STUDIES: Chest x-ray showed stable cardiomegaly with mild vascular congestion. CARDIOVASCULAR STUDIES: EKG showed sinus rhythm with nonspecific T-wave abnormalities and a ventricular rate of 125. ASSESSMENT 1. Chest pain . 2. Gastroesophageal reflux disease. Unit #: [id number] #: [id number] Patient: OVIDIO HINTON 3. Elevated troponin. 4. Coronary artery disease, status post catheterization with percutaneous coronary intervention and stents in 2014. 5. Chronic diastolic congestive heart failure with ejection fraction 55% in 2015. 6. Chronic obstructive pulmonary disease, status post tracheostomy since 2013, O2 dependent. 7. History of paroxysmal atrial fibrillation. 8. Acute kidney injury on chronic kidney disease. 9. Hypertension. 10. Hyperlipidemia. 11. Diabetes mellitus. 12. Morbid obesity with a BMI of 50. PLAN Continue to trend enzymes. Check echocardiogram. She is currently chest pain free. Continue aspirin and statin. Thank you for asking us to see this patient. We appreciate the consult. Dictated by... Jag Abdullahi M.D. JANEY/leti TD: 12/26/2016 05:28 JOB #: [id number] CONSULTATION REPORT Page 1 of 1 X Jag Abdullahi MD X CONSULTATION REPORT
--- NOTE | ~2016-12-24 | EKG ---
PATIENT: OVIDIO HINTON UNIT #: [id number] Ventricular Rate: 126 BPM Atrial Rate: 117 BPM QRS Duration: 102 ms Q-T Interval: 342 ms QTC Calculation(Bezet): 495 ms Calculated R [place]: -56 degrees Calculated T [place]: 73 degrees Diagnosis Line: Atrial fibrillation Diagnosis Line: Borderline criteria for Anterolateral infarct are Diagnosis Line: now Present Diagnosis Line: Confirmed by HOLGER SWENSON MD ([id number]) on Diagnosis Line: 12/25/2016 7:32:51 AM INTERPRETING MD: LEELA HOSKINS
--- NOTE | ~2016-12-24 | DS ---
Unit #: [id number] #: [id number] Patient: OVIDIO HINTON [id number] [place], [place] [address] [id number] I MR#: [id number] NAME: OVIDIO HINTON ROOM: 573 Age: 66 Sex: F Admission Date: 12/25/2016 : 1950 Discharge Date: 12/26/2016 Attending Physician: Aiden Fernandez M.D. Primary Care Physician: Yo Reaves M.D. DISCHARGE SUMMARY REASON FOR ADMISSION 1. Atypical chest pain. 2. Chronic obstructive pulmonary disease exacerbation. HISTORY OF PRESENT ILLNESS/HOSPITAL COURSE Patient is a 66-year-old female with an underlying history of coronary artery disease, diastolic dysfunction, paroxysmal atrial fibrillation, hypertension, COPD, diabetes, was admitted secondary to chest pain and shortness of breath as well as possible COPD exacerbation. Please refer to H and P for complete details. She underwent routine laboratory studies including cardiac enzymes which were cycled and otherwise unremarkable. White count was normal at 9.6, hemoglobin was at her baseline 10.6. She did have decreased potassium which was orally repleated while she was here. Her creatinine was at baseline at 2.1. She is normally followed by nephrology as an outpatient. In regard to her chest pain as well as prior history of coronary artery disease, consultation was placed to Dr. Abdullahi who has seen the patient in the past. Patient underwent 2D echocardiogram which did reveal ejection fraction 35% to 40% and from a cardiac standpoint patient was cleared for discharge home. She does have a longstanding history of a tracheostomy secondary to chronic respiratory failure. Currently she is near baseline. She otherwise feels well. She denies any acute chest pain. She has been reverted to all p.o. medications and she is clinically stable for discharge home. She will follow up as an outpatient with cardiology and pulmonary, renal, as well as her primary care physicians in the next two or three weeks as previously scheduled. FINAL DISCHARGE DIAGNOSIS 1. Acute hypoxic respiratory failure, likely multifactorial in origin. 2. Xrtvq-wr-wwuwnmb diastolic/systolic heart failure. 3. Coronary artery disease, status post stent placement, followed by Dr. Abdullahi. 4. End-stage chronic obstructive pulmonary disease. 5. Hypertension. 6. History of tracheostomy. 7. Hyperlipidemia. 8. Paroxysmal atrial fibrillation, on amiodarone. 9. Chronic kidney disease, baseline creatinine 2 to 2.5. 10. Prior history of breast carcinoma. 11. Diabetes, fair to poor control. Unit #: [id number] #: [id number] Patient: OVIDIO HINTON DISCHARGE MEDICATIONS 1. DuoNeb aerosol solution q.6 h. scheduled. 2. Amiodarone 100 mg p.o. daily. 3. Tylenol 650 mg p.o. q.4-6 h. p.r.n. 4. Neurontin 400 mg p.o. q.8 h. 5. Norvasc 5 mg p.o. daily. 6. Bumex 2 mg p.o. t.i.d. 7. Novolin R 45 units subcu t.i.d. plus sliding scale. 8. Novolin N 70 units subcu b.i.d. 9. Aspirin 81 mg p.o. daily. 10. Arley 10/325 one tablet p.o. q.6 h. p.r.n. 11. Klor-Con 40 mEq p.o. daily. 12. Zanaflex 8 mg p.o. q.h.s. 13. Vitamin D 50,000 units p.o. weekly. DISCHARGE CONDITION Stable. DISCHARGE DISPOSITION Home. FOLLOWUP As outlined above with Dr. Abdullahi. Dictated by... Aiden Fernandez M.D. ALBERT/liss TD: 12/26/2016 14:02 JOB #: [id number] DISCHARGE SUMMARY Page 1 of 1 X Aiden Fernandez MD X DISCHARGE SUMMARY
[~2016-12-24 22:33] MED LIST changes: +AMIODARONE HCL100 MG PO; +IPRATR-ALBUTEROL3 ML INH; +NEXIUM20 MG PO; +NORVASC PO; +NOVOLIN N100 UNIT/1 SUBQ; +NOVOLIN R100 UNITS/ SUBQ
[2016-12-24] MEDS ORDERED: CHEWABLE ASPIRI81 MG PO (22:54)
[2016-12-24] MEDS ORDERED: POTASSIUM CHLO10 MEQ PO (22:58)
[2016-12-25 00:02] LABS: BASOPHIL# 0.1 X10e3 (0-0.3); BASOPHIL% 0.8 % (0-2.5); DIFF IND NO; EOSINOPHIL# 0.2 X10e3 (0-0.7); EOSINOPHIL% 2.5 % (0.0-7.0); HEMATOCRIT 37.6 % (35.0-45.0); HEMOGLOBIN 12.1 gm/dL (12.0-16.0); LYMPHOCYTE# 1.4 X10e3 (1.0-3.5); MEAN CELL VOLUME 82.4 FL (83-96); MEAN CORPUSCULAR HEMOGLOBIN 26.6 PG (28-34); MEAN CORPUSCULAR HGB CONC 32.3 g/dL (30-36); MEAN PLATELET VOLUME 9.6 FL (6.5-11.5); MONOCYTE# 0.7 X10e3 (0-1.0); MONOCYTE% 8.4 % (3.0-12.0); NEUTROPHIL# 6.3 X10e3 (1.5-7.1); NEUTROPHIL% 72.3 % (40-75); PLATELET COUNT 188 X10e3 (140-420); RED BLOOD COUNT 4.56 X10e (3.90-5.30); WHITE BLOOD COUNT 8.7 X10e3 (4.0-10.5)
[2016-12-25 00:10] LABS: POC - CKMB 8.4 ng/mL (0.0-7.9); POC - TROPONIN <0.05 ng/mL (<=0.05)
[2016-12-25 00:17] LABS: INR 0.9; PARTIAL THROMBOPLASTIN TIME 25.7 SECONDS (23.5-31.3); PROTHROMBIN TIME (PATIENT) 10.3 SECONDS (10.0-11.7)
[2016-12-25 00:33] LABS: ALBUMIN SERUM 3.9 g/dL (3.5-5.0); BILIRUBIN, DIRECT 0.1 mg/dL (0.0-0.2); BILIRUBIN,INDIRECT 0.6 mg/dL (0.0-0.9); BILIRUBIN,TOTAL 0.7 mg/dL (0.2-2.0); BUN/CREATININE RATIO 16.66; CALCIUM SERUM 9.4 mg/dL (8.4-10.2); CREATININE SERUM 2.7 mg/dL (0.6-1.4); GLOM FILT RATE Estimated 20.3 mL/min (>60); POTASSIUM 3.1 mmol/L (3.5-5.1); PROTEIN TOTAL SERUM 7.4 g/dL (6.0-8.3)
[2016-12-25 01:02] LABS: POC - TROPONIN <0.05 ng/mL (<=0.05)
[2016-12-25 07:23] LABS: BUN/CREATININE RATIO 19.16; CALCIUM SERUM 9.4 mg/dL (8.4-10.2); CREATININE SERUM 2.4 mg/dL (0.6-1.4); GLOM FILT RATE Estimated 23.4 mL/min (>60); POTASSIUM 3.8 mmol/L (3.5-5.1)
[2016-12-25 07:43] LABS: %MB 1.4 % (0.0-4.0); MB 6.6 ng/ml
[2016-12-25 13:20] LABS: %MB 1.5 % (0.0-4.0); MB 5.9 ng/ml
[2016-12-25 17:00] LABS: %MB 1.9 % (0.0-4.0); MB 6.3 ng/ml
[2016-12-26 06:26] LABS: HEMATOCRIT 32.4 % (35.0-45.0); HEMOGLOBIN 10.6 gm/dL (12.0-16.0); MEAN CELL VOLUME 82.7 FL (83-96); MEAN CORPUSCULAR HGB CONC 32.7 g/dL (30-36); MEAN PLATELET VOLUME 9.5 FL (6.5-11.5); RED BLOOD COUNT 3.92 X10e (3.90-5.30); RED CELL DISTRIBUTION WIDTH 18.9 % (11.0-15.5); WHITE BLOOD COUNT 9.6 X10e3 (4.0-10.5)
[2016-12-26 07:01] LABS: BUN/CREATININE RATIO 24.76; CALCIUM SERUM 8.9 mg/dL (8.4-10.2); CREATININE SERUM 2.1 mg/dL (0.6-1.4); GLOM FILT RATE Estimated 27.5 mL/min (>60)
[2016-12-26 07:07] LABS: POTASSIUM 2.9 mmol/L (3.5-5.1)
[2016-12-26] MEDS ORDERED: KLOR-CON PO (12:57)
[2017-02-15] MEDS ORDERED: METOLAZONE2.5 MG PO (09:51)
[2017-02-15] MEDS ORDERED: PANTOPRAZOLE SO20 MG PO (09:52)
[2017-02-15] MEDS ORDERED: WELLBUTRIN XL150 M1 PO (09:52)
[2017-02-15] MEDS ORDERED: PATIENT'S PHARMACY (09:52)
[2017-02-17] MEDS ORDERED: LEVAQUIN PO (12:23)
[2017-02-17] MEDS ORDERED: COLACE PO (12:24)
[2017-02-17] MEDS ORDERED: BROVANA15 MCG/2 M INH (12:25)
[2017-02-17] MEDS ORDERED: BUDESONIDE0.5 MG/2 M INH (12:27)
== END 2016-12-26 15:49 | disposition home health service (06) | DRG 291 ==
LOC: CED 22:33 → C5C 12-25 05:40 → CEDOF 12-25 05:40 → CED 12-25 05:52 → CEDOF 12-25 07:25 → C5C 12-25 07:25
PROVIDERS: Emergency Medicine; Family Medicine
DX: I13.0 Hypertensive heart and chronic kidney disease with heart failure and stage 1 through stage 4 chronic kidney disease, or unspecified chronic kidney disease (principal); I50.43 Acute on chronic combined systolic (congestive) and diastolic (congestive) heart failure; J96.01 Acute respiratory failure with hypoxia; N17.9 Acute kidney failure, unspecified; J44.1 Chronic obstructive pulmonary disease with (acute) exacerbation; Z68.43 Body mass index [BMI] 50.0-59.9, adult; R07.9 Chest pain, unspecified; I25.10 Atherosclerotic heart disease of native coronary artery without angina pectoris; E11.22 Type 2 diabetes mellitus with diabetic chronic kidney disease; K21.9 Gastro-esophageal reflux disease without esophagitis; Z95.5 Presence of coronary angioplasty implant and graft; N18.9 Chronic kidney disease, unspecified; E78.5 Hyperlipidemia, unspecified; E66.01 Morbid (severe) obesity due to excess calories; I48.0 Paroxysmal atrial fibrillation; Z79.01 Long term (current) use of anticoagulants
CPT/HCPCS: 36415; 71010; 80048; 80076; 82550; 82553; 82947; 83735; 83880; 84484; 85025; 85027; 85610; 85730; 93005; 93306; 94640; 94760; 96374; 99285; J1650; J1815; J2920; J2930

== ENCOUNTER 2017-01-19 13:11 | Emergency (ER) | payer MEDICARE, OTHER ==
[~2017-01-19] VITALS: Ht 177.8 cm; Wt 147.0 kg
--- NOTE | ~2017-01-19 | CR132 ---
[facility] A Service of [facility] RADIOLOGY TEXT RESULTS PATIENT: OVIDIO HINTON LOCATION: [facility] : [birth year] UNIT #: [id number] AGE: [address]: Romero Ugarte MD SEX: F ORDER DR: [id number] [facility] [address] [place], [place] [address] [id number] E MR#: [id number] Acc #: [id number] NAME: OVIDIO HINTON : 1950 SEX: F STUDY DATE/TIME: 01/19/2017 15:26 UNIT: [facility] ROOM: STUDY DESCRIPTION: CR Forearm 2 View Lt Attending Physician: Romero Ugarte M.D. Ordering Physician: Romero Ugarte M.D. Primary Care Physician: Dangelo Gambino Jr., M.D. MEDICAL IMAGING REPORT This report is preliminary unless electronic signature is present EXAM Left forearm HISTORY Erythema with swelling for the past day. No known trauma. TECHNIQUE 2 views of the forearm were obtained. FINDINGS AP and lateral views of the forearm show no evidence of fracture or destructive bone lesion. No periosteal elevation is seen. No radiodense foreign bodies are noted. Adjacent soft tissue structures are normal. IMPRESSION Normal forearm. Dictated by... Krishan Malhotra M.D. THIS IS AN ELECTRONICALLY VERIFIED REPORT Krishan Malhotra M.D. at 01/21/2017 7:07 AM TIMOTHY/gunjan TD: 01/20/2017 01:44 JOB #: [id number] MEDICAL IMAGING REPORT Page 1 of 1 COPY
--- NOTE | ~2017-01-19 | CR281 ---
[facility] A Service of [facility] RADIOLOGY TEXT RESULTS PATIENT: OVIDIO HINTON LOCATION: [facility] : [birth year] UNIT #: [id number] AGE: [address]: Romero Ugarte MD SEX: F ORDER DR: [id number] [facility] [address] [place], [place] [address] [id number] E MR#: [id number] Acc #: [id number] NAME: OVIDIO HINTON : 1950 SEX: F STUDY DATE/TIME: 01/19/2017 15:29 UNIT: [facility] ROOM: STUDY DESCRIPTION: CR Wrist Min 3 View Lt Attending Physician: Romero Ugarte M.D. Ordering Physician: Romero Ugarte M.D. Primary Care Physician: Dangelo Gambino Jr., M.D. MEDICAL IMAGING REPORT This report is preliminary unless electronic signature is present EXAM Left wrist HISTORY Pain, swelling and redness of the left wrist for the past day with no known trauma. TECHNIQUE 3 views left wrist were obtained. FINDINGS Degenerative changes are seen at the scaphotrapezial joint and first carpometacarpal joint with joint space narrowing, chronic corticated erosions and subluxation noted. There is a subcortical cyst in the scaphoid bone. Degenerative changes are also seen along the middle carpal row between the triquetrum and hamate and between the lunate and the capitate to a lesser extent. There is also mild joint space narrowing between the distal radius and the scaphoid. There is no evidence of an acute fracture and no bony demineralization is noted. IMPRESSION Chronic degenerative and erosive changes at the wrist most prominent along the lateral aspect of the wrist. No acute bony abnormalities are seen. Dictated by... Krishan Malhotra M.D. THIS IS AN ELECTRONICALLY VERIFIED REPORT Krishan Malhotra M.D. at 01/21/2017 7:07 AM TIMOTHY/gunjan [facility] A Service of [facility] RADIOLOGY TEXT RESULTS PATIENT: OVIDIO HINTON LOCATION: [facility] #: [id number] : [birth year] UNIT #: [id number] AGE: [address]: Romero Ugarte MD SEX: F ORDER DR: TD: 01/20/2017 02:01 JOB #: [id number] MEDICAL IMAGING REPORT Page 1 of 1 COPY
[~2017-01-19 13:11] MED LIST changes: -ASPIRIN81 MG PO; -BROVANA15 MCG/2 M INH; -BUDESONIDE0.5 MG/2 M INH; -COLACE PO; -COREG12.5 MG PO; -DUONEBS; -FERROUS GLUCON324 MG PO; -GUAIFENESIN600 MG PO; -HYDROCODON-ACE1 EAC5 PO; -IMDUR-ER60 M1 PO; -IPRAT-ALBUT 0.5-3 ML INH; -LEVAQUIN PO; -LIPITOR PO; -METOLAZONE2.5 MG PO; -NITROGLYGERIN0.4 MG SL; -NOVOLIN R100 UNITS/; -PANTOPRAZOLE SO20 MG PO; -PATIENT'S PHARMACY; -POTASSIUM CHLO20 ME1 PO; -PREDNISONE10 M1 PO; -ULORIC80 MG PO; -VITAMIN D2000 UNIT PO; -WELLBUTRIN XL150 M1 PO; -ZANAFLEX PO
[2017-01-19 14:38] LABS: BASOPHIL# 0.1 X10e3 (0-0.3); BASOPHIL% 0.7 % (0-2.5); EOSINOPHIL# 0.1 X10e3 (0-0.7); EOSINOPHIL% 0.7 % (0.0-7.0); HEMATOCRIT 33.9 % (35.0-45.0); HEMOGLOBIN 10.9 gm/dL (12.0-16.0); LYMPHOCYTE# 0.9 X10e3 (1.0-3.5); LYMPHOCYTE% 6.8 % (17.0-45.0); MEAN CELL VOLUME 82.3 FL (83-96); MEAN CORPUSCULAR HEMOGLOBIN 26.6 PG (28-34); MEAN CORPUSCULAR HGB CONC 32.3 g/dL (30-36); MEAN PLATELET VOLUME 9.3 FL (6.5-11.5); MONOCYTE# 1.1 X10e3 (0-1.0); MONOCYTE% 8.7 % (3.0-12.0); NEUTROPHIL# 10.4 X10e3 (1.5-7.1); NEUTROPHIL% 83.1 % (40-75); PLATELET COUNT 190 X10e3 (140-420); RED BLOOD COUNT 4.12 X10e (3.90-5.30); RED CELL DISTRIBUTION WIDTH 19.5 % (11.0-15.5); WHITE BLOOD COUNT 12.5 X10e3 (4.0-10.5)
[2017-01-19 14:42] LABS: DIFF IND NO
[2017-01-19 15:21] LABS: BUN/CREATININE RATIO 17.14; CALCIUM SERUM 9.2 mg/dL (8.4-10.2); CREATININE SERUM 2.1 mg/dL (0.6-1.4); GLOM FILT RATE Estimated 27.5 mL/min (>60); POTASSIUM 3.3 mmol/L (3.5-5.1); URIC ACID 15.2 mg/dL (2.6-7.2)
[2017-02-15] MEDS ORDERED: METOLAZONE2.5 MG PO (09:51)
[2017-02-15] MEDS ORDERED: PANTOPRAZOLE SO20 MG PO (09:52)
[2017-02-15] MEDS ORDERED: PATIENT'S PHARMACY (09:52)
[2017-02-15] MEDS ORDERED: WELLBUTRIN XL150 M1 PO (09:52)
[2017-02-17] MEDS ORDERED: LEVAQUIN PO (12:23)
[2017-02-17] MEDS ORDERED: COLACE PO (12:24)
[2017-02-17] MEDS ORDERED: BROVANA15 MCG/2 M INH (12:25)
[2017-02-17] MEDS ORDERED: BUDESONIDE0.5 MG/2 M INH (12:27)
== END 2017-01-19 16:33 | disposition home or self-care (01) ==
LOC: CED 13:11
PROVIDERS: Emergency Medicine
DX: L03.114 Cellulitis of left upper limb (principal); M10.9 Gout, unspecified; I48.91 Unspecified atrial fibrillation; I25.2 Old myocardial infarction; J44.9 Chronic obstructive pulmonary disease, unspecified; I13.0 Hypertensive heart and chronic kidney disease with heart failure and stage 1 through stage 4 chronic kidney disease, or unspecified chronic kidney disease; E11.22 Type 2 diabetes mellitus with diabetic chronic kidney disease; N18.9 Chronic kidney disease, unspecified; I50.9 Heart failure, unspecified; Z88.8 Allergy status to other drugs, medicaments and biological substances; Z88.5 Allergy status to narcotic agent; Z91.040 Latex allergy status
CPT/HCPCS: 36415; 73090; 73110; 80048; 84550; 85025; 85652; 87040; 94761; 96372; 99284

== ENCOUNTER → 2017-01-19 | Outpatient (CLI) | payer MEDICARE, OTHER ==
[~2017-01-19] MED LIST changes: +ASPIRIN81 MG PO; +BROVANA15 MCG/2 M INH; +BUDESONIDE0.5 MG/2 M INH; +CHEWABLE ASPIRI81 MG PO; +COLACE PO; +COREG12.5 MG PO; +DUONEBS; +FERROUS GLUCON324 MG PO; +GUAIFENESIN600 MG PO; +HYDROCODON-ACE1 EAC5 PO; +IMDUR-ER60 M1 PO; +IPRAT-ALBUT 0.5-3 ML INH; +KLOR-CON PO; +LEVAQUIN PO; +LIPITOR PO; +METOLAZONE2.5 MG PO; +NITROGLYGERIN0.4 MG SL; +NOVOLIN R100 UNITS/; +PANTOPRAZOLE SO20 MG PO; +PATIENT'S PHARMACY; +POTASSIUM CHLO10 MEQ PO; +POTASSIUM CHLO20 ME1 PO; +PREDNISONE10 M1 PO; +ULORIC80 MG PO; +VITAMIN D2000 UNIT PO; +WELLBUTRIN XL150 M1 PO; +ZANAFLEX PO
--- NOTE | ~2017-01-19 | US77 ---
[facility] A Service of [facility] RADIOLOGY TEXT RESULTS PATIENT: OVIDIO HINTON LOCATION: [facility] : [birth year] UNIT #: [id number] AGE: [address]: Shamir Richter MD SEX: F ORDER DR: [id number] [facility] [address] [place], [place] [address] [id number] O MR#: [id number] Acc #: [id number] NAME: OVIDIO HINTON : 1950 SEX: F STUDY DATE/TIME: 01/19/2017 12:50 UNIT: [facility] ROOM: STUDY DESCRIPTION: US Kidney Bilateral Complete Attending Physician: Rico Richter M.D. Referring Physician: Rico Richter M.D. Ordering Physician: Rico Richter M.D. Primary Care Physician: Dangelo Gambino Jr., M.D. MEDICAL IMAGING REPORT This report is preliminary unless electronic signature is present EXAM Renal ultrasound INDICATIONS Right flank pain for 3 weeks. TECHNIQUE Harmon-scale and color Doppler sonographic images were obtained through the kidneys and bladder. FINDINGS Right kidney is normal in appearance. There is no hydronephrosis. No solid or cystic renal masses are identified. There is more limited visualization of the left kidney, but no definite hydronephrosis is seen and I am not convinced I can see any masses, although portions of it are obscured. Urinary bladder appears unremarkable. IMPRESSION 1. Normal appearance to the right kidney. 2. Limited visualization of the left kidney. No obvious abnormalities seen. Dictated by... Zenia Moreira M.D. THIS IS AN ELECTRONICALLY VERIFIED REPORT Zeina Moreira M.D. at 01/20/2017 5:42 PM AFF/psc TD: 01/20/2017 02:20 JOB #: [id number] [facility] A Service [facility] RADIOLOGY TEXT RESULTS PATIENT: OVIDIO HINTON LOCATION: [facility] : [birth year] UNIT #: [id number] AGE: [address]: Shamir Richter MD SEX: F ORDER DR: MEDICAL IMAGING REPORT Page 1 of 1 COPY
== END | disposition home or self-care (01) ==
LOC: CGUS 12:24
DX: N18.3 Chronic kidney disease, stage 3 (moderate) (principal)
CPT/HCPCS: 76770

== ENCOUNTER 2017-01-22 18:52 | Inpatient (IN) | payer MEDICARE, OTHER ==
[~2017-01-22] VITALS: Ht 177.8 cm; Wt 143.5 kg
--- NOTE | ~2017-01-22 | HP ---
Unit #: [id number] #: [id number] Patient: OVIDIO HINTON [id number] [address] [place], [place] [address] [id number] I MR#: [id number] NAME: OVIDIO HINTON ROOM: 556 Age: 66 Sex: F Admission Date: 01/22/2017 : 1950 Attending Physician: Richard Marie M.D. Primary Care Physician: Dangelo Gambino Jr., M.D. HISTORY AND PHYSICAL CHIEF COMPLAINT Right hip pain, left wrist pain. DISCUSSION This is a 66-year-old female with past medical history of COPD, obstructive sleep apnea, and chronic respiratory failure status post trach, coronary artery disease, previous stents, CHF (diastolic/systolic), paroxysmal atrial fibrillation, hypertension, insulin-dependent diabetes, chronic kidney disease, history of breast cancer with previous right lumpectomy, morbid obesity. She presented here on January 19 with chief complaint of left wrist pain. She was diagnosed with gout and sent home. She presented back today with worsening right hip pain. She was unable to ambulate. Left wrist pain. X-ray of hip is negative. CT scan is in the process, pending, of right hip, and she had been admitted for flare up, for gouty arthritis. She was diagnosed with gout on January 19 and she was discharged home with worsening symptoms, unable to ambulate. She has been admitted. She denied chest pain. She has some chronic cough but no nausea, no vomiting, no fever. No other complaints. She said she has severe right hip pain, unable to ambulate. PAST MEDICAL HISTORY 1. History of coronary artery disease with previous stent, followed by Dr. Abdullahi. 2. Chronic respiratory failure. 3. History of obstructive sleep apnea, status post trach. 4. COPD, oxygen dependent. 5. History of CHF, systolic and diastolic. Echocardiogram in November 2016 shows ejection fraction 35% to 40%. 6. History of paroxysmal atrial fibrillation. 7. Hypertension. 8. Insulin-dependent diabetes. 9. Chronic kidney disease. 10. History of breast cancer with previous right lumpectomy. 11. History of dyslipidemia. FAMILY HISTORY History of breast cancer, stomach cancer in the family. SOCIAL HISTORY Patient lives with her daughter at home. She stopped smoking 10 years ago. Does not drink alcohol. No other illicit drug use. MEDICATIONS Medications from home are following: Unit #: [id number] #: [id number] Patient: OVIDIO HINTON 1. DuoNeb nebulizer every four hours. 2. Mucinex 600 mg twice a day. 3. Novolin R 45 units three times a day. 4. Novolin N 70 units twice a day. 5. Amiodarone 100 mg daily. 6. Gabapentin 400 mg three times daily. 7. Potassium chloride 80 mEq b.i.d. 8. Zanaflex 8 mg at bedtime. 9. Norvasc 5 mg daily. 10. Aspirin 81 mg daily. 11. Plavix 75 mg daily. 12. Lipitor 80 mg daily. 13. Bumex 2 mg four times daily. 14. Hydralazine 50 mg three times daily. REVIEW OF SYSTEMS All review of systems negative except for history of present illness. PHYSICAL EXAMINATION GENERAL: A 66-year-old female lying in bed comfortably, currently not in any distress. She is alert, awake, oriented x3. VITAL SIGNS: Current vitals are following: Heart rate is 75, blood pressure is 133/63, oxygen 100%. HEENT: Pupils equally react to light and accommodation. Extraocular muscles are intact. NECK: Supple. No JVD. Trach in place. LUNGS: Bilateral scattered wheeze and poor air entry. HEART: S1, S2. Regular rate and rhythm. ABDOMEN: Obese, soft, nontender, nondistended. EXTREMITIES: (1) positive. Edema positive. NEUROLOGIC: She is alert, awake, oriented x3. Moving all extremities. No focal deficit. Cranial nerves II-XII intact. DIAGNOSTIC STUDIES LABORATORY: Laboratory workup is following: Sodium 135, potassium 3.5, chloride 94, CO2 of 32, glucose 248, BUN 46, creatinine 1.9. LFTs within normal limits. INR is 1. White count 9, hemoglobin 10, hematocrit 30, platelets 193,000. IMAGING: X-ray, left wrist shows chronic degenerative and erosive changes at the wrist, most prominent along the lateral aspect of wrist. No bony abnormalities are seen. X-ray, left forearm which shows no acute finding. Ultrasound of kidney which shows normal appearance to right kidney, limited visualization of left kidney. No obvious abnormalities are seen. X-ray, right hip negative. CT hip is pending. ASSESSMENT AND PLAN 1. Right hip pain: Unable to ambulate. 2. Gouty arthritis: Left wrist is positive with erythema, warmth, and swelling. Will start patient on IV steroids. Cannot give the nonsteroidal anti-inflammatories secondary to chronic kidney disease. Give the dose of colchicine. Ask nephrology to evaluate. 3. History of chronic obstructive pulmonary disease. 4. History of chronic respiratory failure, status post trach. Unit #: [id number] #: [id number] Patient: OVIDIO HINTON 5. History of obstructive sleep apnea, status post trach. 6. Coronary artery disease with previous stent. 7. History of congestive heart failure, diastolic/systolic, ejection fraction 35% to 40%. 8. Paroxysmal atrial fibrillation on amiodarone. 9. Hypertension. 10. Insulin-dependent diabetes. 11. Chronic kidney disease stage 3 to 4. 12. History of breast cancer with previous right lumpectomy. 13. Deep venous thrombosis prophylaxis: Will place the patient on Lovenox. Dictated by Cassie Dailey TD: 01/23/2017 09:41 JOB #: [id number] HISTORY AND PHYSICAL Page 1 of 1 X X HISTORY AND PHYSICAL
--- NOTE | ~2017-01-22 | CR151 ---
[facility] A Service of [facility] RADIOLOGY TEXT RESULTS PATIENT: OVIDIO HINTON LOCATION: [facility] 54- : [birth year] UNIT #: [id number] AGE: [address]: AMY REMY V SEX: F ORDER DR: [id number] [facility] [address] [facility]. [place], [place] [address] [id number] I MR#: [id number] Acc #: [id number] NAME: OVIDIO HINTON : 1950 SEX: F STUDY DATE/TIME: 01/22/2017 21:09 UNIT: [facility] ROOM: [facility] STUDY DESCRIPTION: CR Hip Min 2 Views Rt Attending Physician: Amy Remy M.D. Ordering Physician: Spencer Becker M.D. Primary Care Physician: Dangelo Gambino Jr., M.D. MEDICAL IMAGING REPORT This report is preliminary unless electronic signature is present EXAM Right hip HISTORY Right hip pain for the past several days. TECHNIQUE 3 views of the right hip were obtained. FINDINGS There is a hip prosthesis on the left. There is moderate joint space narrowing of the right hip. There is no evidence of fracture bone destruction or osteochondral fragment. No acute bony abnormalities are seen. IMPRESSION Moderate joint space narrowing at the right hip. No acute findings. Dictated by... Krishan Malhotra M.D. THIS IS AN ELECTRONICALLY VERIFIED REPORT Krishan Malhotra M.D. at 01/25/2017 7:13 AM TIMOTHY/cleo TD: 01/24/2017 00:42 JOB #: [id number] MEDICAL IMAGING REPORT Page 1 of 1 COPY
--- NOTE | ~2017-01-22 | EKG ---
PATIENT: OVIDIO HINTON UNIT #: [id number] Ventricular Rate: 73 BPM Atrial Rate: 73 BPM P-R Interval: 150 ms QRS Duration: 102 ms Q-T Interval: 450 ms QTC Calculation(Bezet): 495 ms P Gresham: 51 degrees Calculated R Gresham: -32 degrees Calculated T Gresham: 46 degrees Diagnosis Line: Sinus rhythm with Premature atrial complexes Diagnosis Line: Left axis deviation Diagnosis Line: Prolonged QT Diagnosis Line: Abnormal ECG Diagnosis Line: Diagnosis Line: Confirmed by TANO TORRES MD ([id number]) on 01/28/2017 Diagnosis Line: 7:00:03 PM INTERPRETING MD: BRIAN HOSKINS
--- NOTE | ~2017-01-22 | EKG ---
PATIENT: OVIDIO HINTON UNIT #: [id number] Ventricular Rate: 72 BPM Atrial Rate: 72 BPM P-R Interval: 150 ms QRS Duration: 104 ms Q-T Interval: 436 ms QTC Calculation(Bezet): 477 ms P [place]: 63 degrees Calculated R [place]: -29 degrees Calculated T [place]: 66 degrees Diagnosis Line: Normal sinus rhythm Diagnosis Line: Low voltage QRS Diagnosis Line: Poor R wave progression questionable lead position Diagnosis Line: or body habitus Diagnosis Line: Abnormal ECG Diagnosis Line: When compared with ECG of 25-JAN-2017 00:19, Diagnosis Line: (unconfirmed) Diagnosis Line: Premature atrial complexes are no longer Present Diagnosis Line: Confirmed by TANO TORRES MD ([id number]) on 01/28/2017 Diagnosis Line: 7:00:11 PM INTERPRETING MD: BRIAN HOSKINS
--- NOTE | ~2017-01-22 | CO ---
Unit #: [id number] #: [id number] Patient: OVIDIO GREENBERG [id number] [address] [place], [place] [address] [id number] I MR#: [id number] NAME: OVIDIO GREENBERG ROOM: 548 Age: 66 Sex: F Admission Date: 01/23/2017 : 1950 Attending Physician: Laura Pool M.D. Primary Care Physician: Dangelo Gambino Jr., M.D. Consultation Date: 01/24/2017 CONSULTATION REPORT REASON FOR CONSULTATION Renal insufficiency. HISTORY OF PRESENT ILLNESS Ms. Ovidio Greenberg is a 66-year-old female with a history of chronic kidney disease, late stage 3, early stage 4 with creatinine baseline around 2+/-, history of COPD, history of heart disease and congestive heart failure, who presented to the hospital with increasing pain in her left wrist and hand felt possibly related to gout. She was in the emergency room several days earlier and noted to have uric acid level of 15. She was started here on some IV Solu-Medrol. The patient also complained of some right hip pain. She has a history of again chronic kidney disease. She just saw Dr. Richter in the office a few days ago. She denies any nonsteroidal use. She states she is still having some pain, but improving. She does have a history of chronic respiratory failure, status post trach for 2 years and states she has been unable to get that removed due to respiratory problems. PAST MEDICAL HISTORY History of COPD; history of obstructive sleep apnea, status post trach; history of atherosclerotic coronary artery disease, status post stents; history of congestive heart failure; history of hypertension; history of diabetes mellitus; history of chronic kidney disease, stage 3/4 and baseline creatinine 2+/-; history of breast cancer, status post right lumpectomy in the past; history of hyperlipidemia. History of paroxysmal atrial fibrillation. REVIEW OF SYSTEMS Again, she denies any fevers, chills, visual problems, sinus problems. No cough or hemoptysis. No neck pain or neck stiffness. No chest pain, chest heaviness, or palpitations. She does have intermittent shortness of breath. She denies any severe abdominal pain currently, nausea, vomiting, or diarrhea. She denies any urinary symptoms; starting, stopping or burning. She states she has intermittent swelling still. She denies any skin rashes. She reports pain in her left wrist and right hip. MEDICATIONS Her medications at home include aspirin 81 mg a day, Plavix 75 mg a day, Lipitor 80 mg a day, Bumex 2 mg q.i.d., hydralazine 50 mg t.i.d., amiodarone 100 mg a day, gabapentin 400 mg t.i.d., KCl 80 mEq b.i.d.?, Zanaflex 8 mg at night, Norvasc 5 mg daily, insulin, guaifenesin 600 mg b.i.d. FAMILY HISTORY Unit #: [id number] #: [id number] Patient: OVIDIO GREENBERG Noncontributory. SOCIAL HISTORY She lives with her daughter. Previous smoker, none now. No alcohol. ALLERGIES Include Demerol and latex. PHYSICAL EXAMINATION GENERAL: She is alert. VITAL SIGNS: T-max 100.1, pulse 75 to 104, blood pressure 119 to 160 over 50 to 70. HEENT: She is normocephalic and atraumatic. Pupils are equal, round, and reactive to light. Extraocular muscles are intact. Hearing appears to be normal. Mouth is clear. No erythema. No exudate. NECK: Supple. She has trach. CARDIAC: She appears to have a regular rhythm without a rub. No S3 or S4. LUNGS: Few bilateral rhonchi. ABDOMEN: Bowel sounds positive, obese, nontender, soft. EXTREMITIES: She does have mild lower extremity swelling bilateral. She states it has been worse than this. NEURO: Appears to be intact with motor and sensory grossly. : Deferred. DIAGNOSTIC STUDIES LABORATORY RESULTS: Sodium is 141, potassium 3.5, chloride is 96, bicarb is 34, BUN 41, creatinine 1.6, glucose 236, calcium is 9. TSAT is 4. Uric acid 15.3. Hemoglobin 9.8. On 01/01/2017, her urine showed no proteinuria. IMAGING STUDIES: She had a CT scan of her pelvis while she was here, showed no fracture. She had arthritis in her right hip and her left hip prosthetic area looked fine. Her ultrasound on 01/19/2017 of her kidney stone showed no hydro, no masses. ASSESSMENT AND PLAN 1. Chronic kidney disease, late stage 3, early stage 4. Certainly, her renal function appears to be stable. She actually had been on dialysis several years ago, but was off and now has some chronic scarring from that. Certainly with no proteinuria and her recent UA suggests that she probably does not have any significant diabetes affecting her kidneys. Certainly, we will continue her diuretics. We will adjust to 4 mg b.i.d. Restart her potassium pill 20 mEq t.i.d. Certainly, we would avoid all nonsteroidals as well as GARCIA-2 inhibitor as well as Mobic. We will check labs in the morning. We will continue to follow. Follow up with Dr. Richter in a few weeks upon discharge. 2. Hyperuricemia questionable gout. She is both on allopurinol and Uloric. We will discontinue her allopurinol and increase her Uloric 80 mg a day if her insurance will pay for it. 3. Hypertension. Blood pressure trends overall stable. 4. Hypokalemia. The patient's potassium of 3.5 now, unsure if she is truly taking 40 mEq t.i.d. at home. We will put her on 20 mEq t.i.d. here and checking a.m. labs in the morning. 5. Chronic obstructive pulmonary disease/obstructive sleep apnea, status post trach. 6. Diabetes mellitus, increased glucose per primary. 7. Anemia, low iron stores. We will start FeSO4. Unit #: [id number] #: [id number] Patient: OVIDIO GREENBERG 8. Right hip pain. Again, avoid nonsteroidals. Dictated by..Milton Florez M.D. RUBY/isaacl TD: 01/25/2017 18:51 JOB #: [id number] CONSULTATION REPORT Page 1 of 1 X Nicolle Florez MD X CONSULTATION REPORT
--- NOTE | ~2017-01-22 | CO ---
Unit #: [id number] #: [id number] Patient: OVIDIO GREENBERG [id number] [address] [place], [place] [address] [id number] I MR#: [id number] NAME: OVIDIO GREENBERG ROOM: 548 Age: 66 Sex: F Admission Date: 01/22/2017 : 1950 Attending Physician: Laura Pool M.D. Primary Care Physician: Dangelo Gambino Jr., M.D. Consultation Date: 01/25/2017 CONSULTATION REPORT CHIEF COMPLAINT Asked to see for complaints of chest discomfort. HISTORY OF PRESENT ILLNESS Ms. Greenberg is a 66-year-old female who is known to our service. She follows with Dr. Abdullahi. She has a past medical history of arteriosclerotic heart disease with coronary catheterization, PCI and stent in 2014, chronic diastolic congestive heart failure. She had a history of an EF of 55% on echo 11/2015, and the she had a repeat echo 11/2016, which showed a decline in her EF to 35% to 40%. She also has a history of hypertension, dyslipidemia and paroxysmal atrial fibrillation. She was just here last month with atypical chest discomfort. At that time myocardial infarction was ruled out and she was okayed for discharge. Again this admission, last night while she was lying in the bed, she had complaints of pressure across her chest that radiated to both ears. There was no dyspnea, no shortness of air, no nausea, no vomiting, and it was relieved with 2 nitroglycerins. She states that she had been reclined in the bed while eating and thinks that might possibly be contributing to it. PAST MEDICAL HISTORY 1. Coronary artery disease with PCI and stent in 2014. 2. Chronic diastolic and systolic congestive heart failure with EF of 35% to 40%. 3. History of pickwickian syndrome with tracheostomy in 2013. 4. COPD, O2 dependent. 5. Gastroesophageal reflux disease. 6. Chronic kidney disease. 7. Hypertension. 8. Dyslipidemia. 9. Diabetes mellitus type 2. 10. Paroxysmal atrial fibrillation. 11. History of reformed tobaccoism. SOCIAL HISTORY She lives with her daughter. She is not very active and uses a cane to ambulate. She quit smoking in 2015. Prior to that she had a 40-year history of tobacco abuse. No illicit drug use. No alcohol. [facility] and [facility] follow her. FAMILY HISTORY Denies family history for premature coronary artery disease. PAST SURGICAL HISTORY 1. Breast cancer with lumpectomy in 2013. Unit #: [id number] #: [id number] Patient: OVIDIO GREENBERG 2. Tracheostomy in 2013. 3. Cardiac catheterization in 2014. 4. Left upper chest port. ALLERGIES Demerol and latex. HOME MEDICATIONS 1. Aspirin 81 mg daily. 2. Plavix 75 mg daily. 3. Lipitor 80 mg daily. 4. Bumex 2 mg q.i.d. 5. Hydralazine 50 mg t.i.d. 6. Amiodarone 100 mg daily. 7. Gabapentin 400 mg t.i.d. 8. Potassium 80 mEq b.i.d. 9. Zanaflex 8 mg at bedtime. 10. Norvasc 5 mg daily. 11. Albuterol/ipratropium Mini-Neb q.4 hours. 12. Guaifenesin 600 mg b.i.d. 13. Novolin-R 45 units t.i.d. 14. Novolin-N 70 units b.i.d. NOTE: A written home medication list has potassium at 60 mEq b.i.d. PHYSICAL EXAMINATION GENERAL: Morbidly obese female in the bed in no acute distress. VITAL SIGNS: Temp 98.2, ventricular rate 80s to 90s, normal sinus rhythm with frequent couplet PVCs, respirations 18, O2 on 5 liters 98% saturation, blood pressure 129/61, BMI 46, weight 143.5 kg. On admission January 19 her weight was 146.96 kg, today it is 143.5 kg. She is down approximately 3 kg since admission. HEENT: Normocephalic, atraumatic. No xanthelasma. Pupils are equal, round and reactive to light. Extraocular movements are intact. NECK: CVP difficult to determine. Unable to determine jugular venous distention. She has a trach. RESPIRATORY: Lungs are with rhonchi bilaterally anteriorly and posteriorly. CARDIOVASCULAR: S1, S2. Normal sinus rhythm. No murmurs, rubs or gallops. Frequent couplet PVCs. ABDOMEN: Obese. Soft. EXTREMITIES: Bilateral nonpitting lower extremity edema, 1+. NEURO: Awake, alert, oriented x3. Speech is clear and appropriate. Follows all commands without difficulty and moves all extremities. SKIN: No rash. DIAGNOSTIC STUDIES LABS: Sodium 142, potassium 3.9, chloride 95, CO2 37, BUN 54, creatinine 1.9, glucose 141. Uric acid 15.3. AST 97, ALT 44, alkaline phosphatase 80. CK total 279. Troponin 0.08; in November it was 0.07 and 0.09. PT 10.6, INR 1, PTT 29.2. Hemoglobin 9.8, hematocrit 30.2, white blood cell count 9, platelet count 192. Back in October of this year, her vitamin D level was 21. It has been low dating back to 2014. Urinalysis is negative. Cultures showed no growth. ASSESSMENT 1. Chest discomfort with troponin negative x1. Unit #: [id number] #: [id number] Patient: OVIIDO GREENBERG 2. Chronic systolic/diastolic congestive heart failure, EF 35% to 40%. Continues with some mild fluid volume overload, although I doubt lower extremities are ever without some minimal edema. 3. Paroxysmal atrial fibrillation, in normal sinus rhythm. 4. History of hypertension. 5. History of diabetes mellitus. 6. Gout, on Allopurinol and Uloric, hyperuricemia. 7. Acute on chronic kidney disease, which is stable. 8. Frequent couplets. 9. Low vitamin D. Will add vitamin D daily. PLAN We will add a magnesium to blood in the lab, serial troponins. Twelve-lead EKG shows normal sinus rhythm, ventricular rate of 73, left axis deviation. There is no acute ST elevation. No ST depression. No T wave abnormality. We will add proBNP to blood in lab. PA and lateral chest x-ray this morning. Will add Demadex 20 mg daily. She is currently on Bumex 4 mg q.12 hours p.o. Add Protonix. Consideration for stress testing and/or coronary catheterization. Himanshu.D. to follow. Dictated by... Lucero Hagen A.P.R.N. for Cassie Stoll/leslie TD: 01/26/2017 08:04 JOB #: [id number] CONSULTATION REPORT Page 1 of 1 X X CONSULTATION REPORT
--- NOTE | ~2017-01-22 | BMI ---
[facility] Nutrition Therapy DATE: 01/23/17 Patient: OVIDIO HINTON Physician: FABIOLA Address: [address] [place] [address] Room/Bed: [address] [place] [address], Zip: [place] [address] Admit Date: 01/22/17 Date of : [birth year] Height: 5 10 Weight: 321 146 HIGH BMI NOTE: DX: PATIENT ADMITTED FOR GOUTY ARTHRITIS ANTHROPOMETRICS: HT: 70", WT: 321#, BMI: 46.1 DIET: CCD RECOMMENDATIONS: RECOMMEND ADDING HEART HEALTHY TO CURRENT DIET ORDER TO PROMOTE A STEADY WEIGHT LOSS TOWARDS A HEALTHY BMI OF 19-25 Respectfully, SIDDHARTHA JOSE, CLAUDIA, LD Food and Nutritional Services [facility] cc: client file
--- NOTE | ~2017-01-22 | DS ---
Unit #: [id number] #: [id number] Patient: OVIDIO HINTON [id number] [address] [place], [place] [address] [id number] I MR#: [id number] NAME: OVIDIO HINTON ROOM: 548 Age: 66 Sex: F Admission Date: 01/23/2017 : 1950 Discharge Date: Attending Physician: Laura Pool M.D. Primary Care Physician: Dangelo Gambino Jr., M.D. DISCHARGE SUMMARY DISCHARGE DIAGNOSES 1. Angina with history of coronary artery disease status post cardiac catheterization with patent stents. Continue with medical management. Also, right cardiac catheterization shows moderate pulmonary hypertension. 2. Acute gouty arthritis involving right hip and left wrist areas. 3. Chronic respiratory failure status post tracheostomy. 4. Chronic obstructive pulmonary disease with exacerbation. 5. History of obstructive sleep apnea status post tracheostomy. 6. Coronary artery disease with previous stents. 7. Chronic systolic heart failure, ejection fraction 35% to 40%. 8. Moderate pulmonary hypertension. 9. Paroxysmal atrial fibrillation, on amiodarone. Rate controlled. 10. Hypertension. 11. Insulin-dependent diabetes mellitus type 2. 12. Chronic kidney disease, state 4. 13. History of breast cancer with history of previous right lumpectomy. CONSULTATIONS 1. Dr. Florez. 2. Dr. Gordon. PROCEDURES The patient had cardiac cath, which shows patent stents, moderate pulmonary hypertension. DIAGNOSTIC TESTING LAB DATA: Glucose 186. Sodium 141, potassium 3.8, creatinine 1.5. WBC 12, hemoglobin 10.4, platelets 248. LDL 91. IMAGING: Chest x-ray, 2 views, shows no active disease. ALLERGIES Latex and meperidine. DISCHARGE MEDICATIONS 1. Amiodarone 100 mg p.o. daily. 2. Neurontin 400 three times daily. 3. Atorvastatin 80 daily. 4. Coreg 12.5 p.o. b.i.d. 5. Bumex 2 mg p.o. b.i.d. 6. Humibid LA 1,200 mg p.o. b.i.d. 7. Hydralazine 50 three times daily. 8. Novolin R 45 units subcu 3 times daily. Unit #: [id number] #: [id number] Patient: OVIDIO HINTON 9. Novolin R sliding scale. 10. Novolin N 70 units subcu 2 times daily. 11. Ferrous gluconate 324 mg p.o. b.i.d. 12. Aspirin 81 daily. 13. [place] 10 mg q.4 p.r.n. pain. 14. Plavix 75 mg p.o. daily. 15. Potassium 40 mEq p.o. 3 times daily. 16. Zanaflex 8 mg at bedtime. 17. Imdur ER 60 mg p.o. daily. 18. Nitroglycerin 0.4 sublingual every 5 minutes x3 p.r.n. chest pain. 19. Vitamin D 2,000 units p.o. daily. 20. Uloric 80 mg p.o. daily. 21. DuoNeb 4 times daily. 22. Prednisone tapering dose. HOSPITALIZATION COURSE This is a 66 year old admitted because of right hip and left wrist pain. Found to have chest pain also with angina. Angina with history of coronary artery disease. Patient had a cardiac cath. Stents are patent. Told to continue with medical management. Patient does have moderate pulmonary hypertension. Continue with current medications recommended by Dr. Gordon. Gouty arthritis with right hip and left wrist pain. Pain medications have been added. Patient was on steroids. Patient will continue with tapering dose of steroids. Chronic hypoxic respiratory failure status post tracheostomy with COPD and obstructive sleep apnea. Currently stable. She is on 5 liters oxygen at home. 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 Chronic systolic heart failure. Stable. Continue with Bumex. Compensated. Paroxysmal atrial fibrillation, on amiodarone, rate control. Diabetes mellitus type 2, uncontrolled. Continue with her current insulin dosage. Chronic kidney disease stage 4. Patient is seen by Dr. Florez with acute gout. Uloric has been added. DISCHARGE PLAN 1. Patient will be discharged home. 2. Follow with family physician in 1 week time. 3. Follow with Dr. Gordon in 3-4 weeks' time. 4. Patient will have home health at home. NOTE: Discharge time taken is 33 minutes. Dictated by... Cassie Santo/leslie TD: 01/26/2017 14:55 Unit #: [id number] #: [id number] Patient: OVIDIO HINTON JOB #: [id number] DISCHARGE SUMMARY Page 1 of 1 X Laura Pool MD DISCHARGE SUMMARY
--- NOTE | ~2017-01-22 | CO ---
Unit #: [id number] #: [id number] Patient: OVIDIO HINTON [id number] [address] [place], [place] [address] [id number] I MR#: [id number] NAME: OVIDIO HINTON ROOM: 548 Age: 66 Sex: F Admission Date: 01/23/2017 : 1950 Attending Physician: Laura Pool M.D. Primary Care Physician: Dangelo Gambino Jr., M.D. Consultation Date: 01/23/2017 CONSULTATION REPORT REASON FOR CONSULT Chronic kidney disease. CONSULTING PROVIDER Dr. Dar JOHN This is a 66-year-old -[place]i female with chronic kidney disease stage 3 who presented with recent hip pain and being unable to ambulate. She was admitted for treatment of gouty arthritis. On admission, her creatinine was 1.9 and it is now 1.7. Her baselines have been running around 1.4 to 1.8. However, in the last couple of months, had been around the mid 2's. She denies any NSAID use at home, denies any fevers, chills, nausea or vomiting, denies dysuria, hematuria, changes in color or urine volume. REVIEW OF SYSTEMS As mentioned before, no fevers, no chills, no nausea or vomiting. No changes in weight. No abdominal pain, no diarrhea or constipation. No chest pain or palpitations. No dysuria, hematuria, urgency or frequency. No edema in the lower extremities. Positive pain in the left wrist and right hip. No worsening shortness of breath, no productive cough. She does have a tracheostomy. Denies any stroke-like symptoms. No tingling or numbness. PAST MEDICAL HISTORY Includes: 1. Coronary artery disease. 2. Chronic respiratory failure with tracheostomy. 3. Obstructive sleep apnea. 4. COPD. She is oxygen dependent. 5. CHF. 6. Paroxysmal atrial fibrillation. 7. Hypertension. 8. Diabetes. 9. CKD3. 10. History of breast cancer with right lumpectomy. 11. Hyperlipidemia. SURGICAL HISTORY Includes: 1. Right lumpectomy. 2. Tracheostomy placement. 3. She did have hemodialysis with acute kidney injury, currently not Unit #: [id number] #: [id number] Patient: OVIDIO HINTON dependent. FAMILY HISTORY Negative for chronic kidney disease but positive for breast cancer and stomach cancer. SOCIAL HISTORY She lives with her daughter. She does not currently smoke or drink alcohol. MEDICATIONS Medications at home are as follows: 1. Duo-Nebs. 2. Mucinex. 3. Insulin. 4. Amiodarone. 5. Gabapentin 400 three times daily. 6. Potassium chloride 80 mEq b.i.d. 7. Zanaflex. 8. Norvasc 5 mg daily. 9. Aspirin 81. 10. Plavix 75. 11. Lipitor 80. 12. Bumex 2 mg four times daily. 13. Hydralazine 50 mg three times a day. PHYSICAL EXAM VITAL SIGNS: Temperature 100.8, pulse 87, respiratory rate 16, blood pressure 149/65. GENERAL: She seems in mild distress or slightly uncomfortable. She is chronically ill appearing. HEENT: Normocephalic, atraumatic. She had a tracheostomy in place. Extraocular muscles intact. CARDIOVASCULAR: Regular rate and rhythm. No gallop, murmurs or rub. PULMONARY: Coarse breath sounds bilaterally but no crackles or rhonchi. She does seem to have productive cough. ABDOMEN: Obese. Positive bowel sounds. Nontender, nondistended. EXTREMITIES: No edema or cyanosis. NEURO: Alert and oriented x3. No focal deficits appreciated. DIAGNOSTIC STUDIES LABORATORY: Labs as follow - WBC 9.8, hemoglobin 9.8, platelets 192, sodium 137, potassium 3.2, chloride 95, bicarb 32, BUN 39, creatinine is now 1.7. It was 1.9 on admission, glucose is 280. IMAGING: Renal ultrasound bilaterally - virtually normal ultrasound although the left kidney was difficult to completely visualize. Medicines have been reviewed. ASSESSMENT AND PLAN 1. CKD3. Currently, creatinine is at baseline with essentially normal ultrasound. No significant changes at this time. 2. Metabolic alkalosis. This could be secondary to loop diuretics. She is on Bumex four times a day. However, it could also be compensation from chronic respiratory acidosis. Will need an ABG to establish true acid based status although I don't think this is necessary at this time. Can decrease the Bumex for now to three times a day and Unit #: [id number] #: [id number] Patient: OVIDIO HINTON monitor. 3. Hypertension, close to goal. No changes currently. She does need some pain control. 4. Anemia of chronic kidney disease. Will check iron studies and evaluate need for Epo and/or IV iron. 5. Gouty arthritis. Her uric acid is actually above 10. I think it is 15 and management per primary team. Recommend again (1) medicine or any other NSAIDs given patient's chronic kidney disease. Thank you very much for this consult. Dictated by... Tari Brown M.D. KAYLEE/brianne TD: 01/25/2017 08:55 JOB #: [id number] CONSULTATION REPORT Page 1 of 1 X X CONSULTATION REPORT
--- NOTE | ~2017-01-22 | CT107 ---
[facility] A Service of [facility] RADIOLOGY TEXT RESULTS PATIENT: OVIDIO HINTON LOCATION: [facility] : [birth year] UNIT #: [id number] AGE: [address]: AMY REMY V SEX: F ORDER DR: [id number] [facility] [address] [facility]. [place], [place] [address] [id number] MR#: [id number] Acc #: [id number] NAME: OVIDIO HINTON : 1950 SEX: F STUDY DATE/TIME: 01/22/2017 22:36 UNIT: [facility] ROOM: [facility] STUDY DESCRIPTION: CT Pelvis Wo Cont Attending Physician: Amy Remy M.D. Ordering Physician: Spencer Becker M.D. Primary Care Physician: Dangelo Gambino Jr., M.D. MEDICAL IMAGING REPORT This report is preliminary unless electronic signature is present EXAM CT pelvis without contrast HISTORY Right hip pain today. No injury. Unable to walk. TECHNIQUE This CT exam was performed with one or more of the following radiation dose reduction techniques: automatic control, adjustment of mA and/or kV according to patient size, and iterative reconstruction. FINDINGS CT pelvis was performed without contrast. There is moderate degenerative arthritis in the right hip. Left hip prosthesis in satisfactory position. No fracture is identified. Streak artifact from a left hip prosthesis partly limits the examination. Hysterectomy with surgical clips in the pelvis. IMPRESSION 1. No fractures identified. 2. Moderate degenerative arthritis in the right hip. 3. Left hip prosthesis appears in satisfactory position. Dictated by... Dave Dennis M.D. THIS IS AN ELECTRONICALLY VERIFIED REPORT Dave Dennis M.D. at 01/24/2017 6:27 AM DFL/rnr TD: 01/24/2017 01:44 [facility] A Service [facility] RADIOLOGY TEXT RESULTS PATIENT: OVIDIO HINTON LOCATION: [facility] 54 : [birth year] UNIT #: [id number] AGE: [address]: AMY REMY V SEX: F ORDER DR: JOB #: [id number] MEDICAL IMAGING REPORT Page 1 of 1 COPY
--- NOTE | ~2017-01-22 | CR63 ---
[facility] A Service of [facility] RADIOLOGY TEXT RESULTS PATIENT: OVIDIO HINTON LOCATION: [place] [address]- : [birth year] UNIT #: [id number] AGE: [address]: Laura Pool MD SEX: F ORDER DR: [id number] [facility] [address] [place], [place] [address] [id number] I MR#: [id number] Acc #: [id number] NAME: OVIDIO HINTON : 1950 SEX: F STUDY DATE/TIME: 01/25/2017 14:38 UNIT: [facility] ROOM: [facility] STUDY DESCRIPTION: CR Chest 2 View Attending Physician: Laura Pool M.D. Ordering Physician: Laura Pool M.D. Primary Care Physician: Dangelo Gambino Jr., M.D. MEDICAL IMAGING REPORT This report is preliminary unless electronic signature is present EXAM PA and lateral chest. HISTORY Chest pain for two days. Shortness of air. FINDINGS PA and lateral views of the chest was obtained. The exam is limited by patient size, particularly the lateral view. The heart size is upper limits of normal. The lungs are clear. The Port-A-Cath has its tip in the superior vena cava and there is a tracheostomy tube present. IMPRESSION The exam is somewhat limited by patient size, but there is no active disease visible. Dictated by... Carlito Lind M.D. THIS IS AN ELECTRONICALLY VERIFIED REPORT Carlito Lind M.D. at 01/26/2017 12:43 PM FERNY/benjie TD: 01/25/2017 23:42 JOB #: [id number] MEDICAL IMAGING REPORT Page 1 of 1 COPY
[2017-01-22 20:17] LABS: BASOPHIL# 0.1 X10e3 (0-0.3); BASOPHIL% 0.8 % (0-2.5); EOSINOPHIL# 0.2 X10e3 (0-0.7); EOSINOPHIL% 2.5 % (0.0-7.0); HEMATOCRIT 30.5 % (35.0-45.0); HEMOGLOBIN 10.2 gm/dL (12.0-16.0); LYMPHOCYTE# 0.8 X10e3 (1.0-3.5); LYMPHOCYTE% 8.3 % (17.0-45.0); MEAN CELL VOLUME 81.8 FL (83-96); MEAN CORPUSCULAR HEMOGLOBIN 27.2 PG (28-34); MEAN CORPUSCULAR HGB CONC 33.3 g/dL (30-36); MEAN PLATELET VOLUME 9.5 FL (6.5-11.5); MONOCYTE% 11.2 % (3.0-12.0); NEUTROPHIL# 7.1 X10e3 (1.5-7.1); NEUTROPHIL% 77.2 % (40-75); PLATELET COUNT 193 X10e3 (140-420); RED BLOOD COUNT 3.73 X10e (3.90-5.30); WHITE BLOOD COUNT 9.2 X10e3 (4.0-10.5)
[2017-01-22 20:18] LABS: DIFF IND NO
[2017-01-22 20:32] LABS: PARTIAL THROMBOPLASTIN TIME 29.2 SECONDS (23.5-31.3); PROTHROMBIN TIME (PATIENT) 10.6 SECONDS (10.0-11.7)
[2017-01-22 20:48] LABS: ALBUMIN SERUM 3.7 g/dL (3.5-5.0); BILIRUBIN, DIRECT 0.1 mg/dL (0.0-0.2); BILIRUBIN,INDIRECT 0.7 mg/dL (0.0-0.9); BILIRUBIN,TOTAL 0.8 mg/dL (0.2-2.0); BUN/CREATININE RATIO 24.21; CALCIUM SERUM 8.8 mg/dL (8.4-10.2); CREATININE SERUM 1.9 mg/dL (0.6-1.4); GLOM FILT RATE Estimated 31.1 mL/min (>60); POTASSIUM 3.5 mmol/L (3.5-5.1); PROTEIN TOTAL SERUM 7.6 g/dL (6.0-8.3); URIC ACID 15.3 mg/dL (2.6-7.2)
[2017-01-22] MEDS ORDERED: ASPIRIN81 MG PO (21:45)
[2017-01-22] MEDS ORDERED: CLOPIDOGREL75 MG PO (21:45)
[2017-01-22] MEDS ORDERED: HYDRALAZINE HCL50 MG PO (21:47)
[2017-01-22] MEDS ORDERED: LIPITOR PO (21:47)
[2017-01-22] MEDS ORDERED: AMIODARONE HCL100 MG PO (21:47)
[2017-01-22] MEDS ORDERED: BUMEX2 MG PO (21:47)
[2017-01-22] MEDS ORDERED: POTASSIUM CHLO20 ME1 PO (21:48)
[2017-01-22] MEDS ORDERED: GABAPENTIN400 M2 PO (21:48)
[2017-01-22] MEDS ORDERED: NORVASC10 MG PO (21:50)
[2017-01-22] MEDS ORDERED: ZANAFLEX PO (21:50)
[2017-01-22] MEDS ORDERED: IPRAT-ALBUT 0.5-3 ML INH (21:50)
[2017-01-22] MEDS ORDERED: GUAIFENESIN600 MG PO (21:51)
[2017-01-22] MEDS ORDERED: NOVOLIN R100 UNITS/ SUBQ (22:26)
[2017-01-22] MEDS ORDERED: NOVOLIN N100 UNIT/1 SUBQ (22:26)
[2017-01-23] MEDS ORDERED: NOVOLIN R100 UNITS/ (03:21)
[2017-01-23] MEDS ORDERED: DUONEBS (03:27)
[2017-01-23 06:32] LABS: BASOPHIL# 0.1 X10e3 (0-0.3); BASOPHIL% 0.8 % (0-2.5); EOSINOPHIL# 0.3 X10e3 (0-0.7); EOSINOPHIL% 2.9 % (0.0-7.0); HEMATOCRIT 30.2 % (35.0-45.0); HEMOGLOBIN 9.8 gm/dL (12.0-16.0); LYMPHOCYTE% 10.8 % (17.0-45.0); MEAN CELL VOLUME 82.3 FL (83-96); MEAN CORPUSCULAR HEMOGLOBIN 26.8 PG (28-34); MEAN CORPUSCULAR HGB CONC 32.6 g/dL (30-36); MEAN PLATELET VOLUME 9.6 FL (6.5-11.5); MONOCYTE# 0.9 X10e3 (0-1.0); MONOCYTE% 10.2 % (3.0-12.0); NEUTROPHIL# 6.8 X10e3 (1.5-7.1); NEUTROPHIL% 75.3 % (40-75); PLATELET COUNT 192 X10e3 (140-420); RED BLOOD COUNT 3.67 X10e (3.90-5.30); RED CELL DISTRIBUTION WIDTH 18.9 % (11.0-15.5)
[2017-01-23 06:37] LABS: BUN/CREATININE RATIO 22.94; CALCIUM SERUM 8.9 mg/dL (8.4-10.2); CREATININE SERUM 1.7 mg/dL (0.6-1.4); GLOM FILT RATE Estimated 35.6 mL/min (>60); POTASSIUM 3.2 mmol/L (3.5-5.1)
[2017-01-23 07:51] LABS: DIFF IND NO
[2017-01-24 06:01] LABS: BUN/CREATININE RATIO 25.62; CREATININE SERUM 1.6 mg/dL (0.6-1.4); GLOM FILT RATE Estimated 38.3 mL/min (>60); POTASSIUM 3.5 mmol/L (3.5-5.1)
[2017-01-25 01:10] LABS: %MB 1.8 % (0.0-4.0); MB 5.1 ng/ml
[2017-01-25 06:27] LABS: URINE APPEARANCE CLEAR; URINE BILIRUBIN NEG (NEG); URINE BLOOD NEG (NEG); URINE COLOR YELLOW; URINE GLUCOSE NEG (NEG); URINE KETONE NEG (NEG); URINE LEUKOCYTE ESTERASE NEG (NEG); URINE NITRATE NEG (NEG); URINE PROTEIN NEG (NEG); URINE SPECIFIC GRAVITY 1.017 (1.003-1.035); URINE UROBILINOGEN 0.2 MG/DL (NEG)
[2017-01-25 07:54] LABS: BUN/CREATININE RATIO 28.42; CALCIUM SERUM 9.1 mg/dL (8.4-10.2); CREATININE SERUM 1.9 mg/dL (0.6-1.4); GLOM FILT RATE Estimated 31.1 mL/min (>60); PHOSPHOROUS 3.1 mg/dL (2.5-4.6); POTASSIUM 3.9 mmol/L (3.5-5.1)
[2017-01-26 06:18] LABS: BUN/CREATININE RATIO 30.62; CALCIUM SERUM 8.7 mg/dL (8.4-10.2); CREATININE SERUM 1.6 mg/dL (0.6-1.4); GLOM FILT RATE Estimated 38.3 mL/min (>60); POTASSIUM 3.6 mmol/L (3.5-5.1)
[2017-01-26 06:30] LABS: CHOLESTEROL 164 mg/dL (0-200); HDL CHOLESTEROL 36 mg/dL (35-95); LDL CHOLESTEROL 91 mg/dL (-130); LDL/HDL RATIO 3 RATIO (0-4); TRIGLYCERIDES 187 mg/dL (10-160)
[2017-01-26 09:33] LABS: HEMATOCRIT 32.3 % (35.0-45.0); HEMOGLOBIN 10.4 gm/dL (12.0-16.0); MEAN CELL VOLUME 82.2 FL (83-96); MEAN CORPUSCULAR HEMOGLOBIN 26.6 PG (28-34); MEAN CORPUSCULAR HGB CONC 32.3 g/dL (30-36); MEAN PLATELET VOLUME 9.1 FL (6.5-11.5); RED BLOOD COUNT 3.93 X10e (3.90-5.30)
[2017-01-26 09:45] LABS: INR 1.1; PARTIAL THROMBOPLASTIN TIME 24.1 SECONDS (23.5-31.3); PROTHROMBIN TIME (PATIENT) 11.4 SECONDS (10.0-11.7)
[2017-01-26 09:57] LABS: CALCIUM SERUM 8.8 mg/dL (8.4-10.2); CREATININE SERUM 1.5 mg/dL (0.6-1.4); GLOM FILT RATE Estimated 41.4 mL/min (>60); POTASSIUM 3.8 mmol/L (3.5-5.1)
[2017-01-26] MEDS ORDERED: COREG12.5 MG PO (14:27)
[2017-01-26] MEDS ORDERED: NOVOLIN R100 UNITS/ SUBQ (14:34)
[2017-01-26] MEDS ORDERED: NOVOLIN R100 UNITS/ (14:35)
[2017-01-26] MEDS ORDERED: FERROUS GLUCON324 MG PO (14:37)
[2017-01-26] MEDS ORDERED: HYDROCODON-ACE1 EAC5 PO (14:40)
[2017-01-26] MEDS ORDERED: IMDUR-ER60 M1 PO (14:43)
[2017-01-26] MEDS ORDERED: VITAMIN D2000 UNIT PO (14:44)
[2017-01-26] MEDS ORDERED: NITROGLYGERIN0.4 MG SL (14:44)
[2017-01-26] MEDS ORDERED: ULORIC80 MG PO (14:45)
[2017-01-26] MEDS ORDERED: PREDNISONE10 M1 PO (14:47)
[2017-02-15] MEDS ORDERED: METOLAZONE2.5 MG PO (09:51)
[2017-02-15] MEDS ORDERED: PATIENT'S PHARMACY (09:52)
[2017-02-15] MEDS ORDERED: WELLBUTRIN XL150 M1 PO (09:52)
[2017-02-15] MEDS ORDERED: PANTOPRAZOLE SO20 MG PO (09:52)
[2017-02-17] MEDS ORDERED: LEVAQUIN PO (12:23)
[2017-02-17] MEDS ORDERED: COLACE PO (12:24)
[2017-02-17] MEDS ORDERED: BROVANA15 MCG/2 M INH (12:25)
[2017-02-17] MEDS ORDERED: BUDESONIDE0.5 MG/2 M INH (12:27)
== END 2017-01-26 18:05 | disposition home health service (06) | DRG 287 ==
LOC: CED 18:52 → CEDOF 23:30 → CED 23:38 → C5B 01-23 02:06 → CEDOF 01-23 02:06 → C5B 01-23 07:28 → CEDOF 01-23 14:22 → C5B 01-23 14:22
PROVIDERS: Emergency Medicine; Internal Medicine; Internal Medicine Nephrology
PROC: 4A023N8 Measurement of Cardiac Sampling and Pressure, Bilateral, Percutaneous Approach (ICD-10-PCS; principal; 2017-01-26)
PROC: B215YZZ Fluoroscopy of Left Heart using Other Contrast (ICD-10-PCS; 2017-01-26)
PROC: B211YZZ Fluoroscopy of Multiple Coronary Arteries using Other Contrast (ICD-10-PCS; 2017-01-26)
DX: I25.119 Atherosclerotic heart disease of native coronary artery with unspecified angina pectoris (principal); N17.9 Acute kidney failure, unspecified; J96.10 Chronic respiratory failure, unspecified whether with hypoxia or hypercapnia; E87.3 Alkalosis; I27.2 Other secondary pulmonary hypertension; I13.0 Hypertensive heart and chronic kidney disease with heart failure and stage 1 through stage 4 chronic kidney disease, or unspecified chronic kidney disease; N18.4 Chronic kidney disease, stage 4 (severe); I50.22 Chronic systolic (congestive) heart failure; J44.1 Chronic obstructive pulmonary disease with (acute) exacerbation; Z68.42 Body mass index [BMI] 45.0-49.9, adult; M10.051 Idiopathic gout, right hip; M10.032 Idiopathic gout, left wrist; Z87.891 Personal history of nicotine dependence; I48.0 Paroxysmal atrial fibrillation; E11.22 Type 2 diabetes mellitus with diabetic chronic kidney disease; E11.65 Type 2 diabetes mellitus with hyperglycemia; Z79.4 Long term (current) use of insulin; Z93.0 Tracheostomy status; Z95.5 Presence of coronary angioplasty implant and graft; Z91.040 Latex allergy status; Z88.8 Allergy status to other drugs, medicaments and biological substances; Z99.81 Dependence on supplemental oxygen; G47.33 Obstructive sleep apnea (adult) (pediatric); E78.5 Hyperlipidemia, unspecified; E87.6 Hypokalemia; D63.1 Anemia in chronic kidney disease; E66.01 Morbid (severe) obesity due to excess calories; Z85.3 Personal history of malignant neoplasm of breast; Z80.0 Family history of malignant neoplasm of digestive organs
CPT/HCPCS: 36415; 71020; 72192; 73502; 80048; 80061; 80076; 81003; 82308; 82550; 82553; 82728; 82810; 82947; 83540; 83550; 83735; 83880; 84100; 84484; 84550; 85025; 85027; 85610; 85730; 87040; 93005; 94640; 94760; 96374; 96375; 97161; 97165; 97530; 99152; 99153; 99284; C1769; C1887; C1894; G8978-GP; G8979-GP; G8987-GO; G8988-GO; G8989-GO; J1170; J1642; J1644; J1650; J1815; J2250; J2270; J2405; J2920; J3010